=== PATIENT | female | born 1940 | race Caucasian/White ===

== ENCOUNTER 2017-02-22 16:40 | Inpatient (IN) | payer MEDICARE, OTHER, SELFPAY | END 2017-02-24 14:25 | disposition home health service (06) | DRG 190 | PROVIDERS: Admitting Provider Family Medicine; Emergency Provider Emergency Medicine; Family Provider Internal Medicine Adolescent Medicine; Visit Provider Internal Medicine Adolescent Medicine | DX: J18.9 Pneumonia, unspecified organism (principal); J44.0 Chronic obstructive pulmonary disease with (acute) lower respiratory infection; J44.1 Chronic obstructive pulmonary disease with (acute) exacerbation; I10 Essential (primary) hypertension; I50.9 Heart failure, unspecified; Z91.81 History of falling; R26.81 Unsteadiness on feet; M15.9 Polyosteoarthritis, unspecified | CPT/HCPCS: 36415; 71010; 80053; 82550; 82553; 83605; 83880; 84484; 85025; 87040; 87075; 93005; 93041; 94640; 94760; 96365; 96375; 97162; 97165; 97535; 99285; J0456 ==

== ENCOUNTER → 2017-07-16 09:16 | Outpatient (CLI) | payer MEDICARE, OTHER, SELFPAY ==
--- NOTE | 2017-07-16 09:23 | CA_ITS ---
PROCEDURE: 2-D M-mode and color Doppler study INDICATIONS FOR THE TEST: Chest pain COPD Heart Murmur Tobacco Smoking Palpitations Fatigue Syncope Edema+ Hypertension Diabetes Mellitus Rheumatic Fever SOB+GONZALEZ Obesity Hyperlipidemia Family History HD Additional History PATIENT INFORMATION HEIGHT: 64 WEIGHT:160 GENDER: Female B/P: 2-D/M-MODE INTERPRETATION: 2-D MEASUREMENTS OBSERVED VALUES IN CMS Right Ventricular Dimension (RVDd) 2.1 Interventricular Septum (Thickness)(IVsd) 1.8 Left Ventricular Internal Dimensions(LVIDd) 3.3 Left Ventricular Posterior Wall (Thickness)(LVPWd) 1.2 Aortic Root 2.9 Aortic Cusp Separation 1.9 Left Atrial Dimensions (LAD) 3.5 2D 1. Left atrium is mildly enlarged, left ventricle is normal size, mild concentric left ventricular hypertrophy, visually estimated ejection fraction 55% with no obvious regional wall motion abnormality. 2. The right atrium and right ventricle are mildly enlarged with normal contractility. 3. The aortic valve is minimally thickened and fibrosed. 4. The mitral and tricuspid valvular grossly normal. 5. The pulmonic valve is poorly visualized. 6. No significant pericardial effusion noted. DOPPLER INTERROGATION: Doppler interrogation of the aortic, mitral and tricuspid valvular presence of mild mitral and tricuspid regurgitation, tricuspid and jet velocity is insufficient for calculation of the right ventricular systolic pressure, diastolic parameters are inconclusive. CONCLUSION: 1. Technically difficult study because of the patient's factor and poor acoustic windows 2. Mildly enlarged left atrium, normal left ventricular size, mild concentric left ventricular hypertrophy, visually estimated ejection fraction 55% with no obvious regional wall motion abnormality, diastolic parameters are inconclusive. 3. Mildly enlarged right atrium and right ventricle, contractility of the right ventricle is normal. 4. Mild mitral and tricuspid regurgitation 5. No significant pericardial effusion noted.
[2017-07-16 10:28] LABS: Basophils # 0.1 K/mm3 (0-0.2); Eosinophils # 0.4 K/mm3 (0.0-0.4); Eosinophils % 6.3 % (0.1-12.0); Hematocrit 37.1 % (37.0-47.0); Hemoglobin 11.9 g/dL (12.2-16.2); Lymphocytes # 1.8 K/mm3 (0.7-4.5); Lymphocytes % 25.6 K/mm3 (10-50); Mean Corpuscular HGB Conc 32.2 g/dL (31.8-35.4); Mean Corpuscular Hemoglobin 29.6 pg (27.0-31.2); Mean Corpuscular Volume 92.1 fl (81-99); Mean Platelet Volume 7.8 fl (7.4-10.4); Monocytes # 0.4 K/mm3 (0.1-1.0); Monocytes % 5.8 % (1.7-9.3); Neutrophils # 4.3 K/mm3 (1.8-7.8); Neutrophils % 61.3 % (37.0-80.0); Platelet Count 244 K/mm3 (142-424); Red Blood Count 4.03 M/mm3 (4.20-5.40); Red Cell Distribution Width 13.1 % (11.5-17.5)
[2017-07-16 11:47] LABS: Alanine Aminotransferase 18 U/L (12-78); Albumin Level 3.8 gm/dL (3.4-5.0); Albumin/Globulin Ratio 0.9 (1.1-1.8); Alkaline Phosphatase 120 U/L (46-116); Anion Gap 11.8 mEq/L (5-15); Aspartate Amino Transferase 17 U/L (15-37); Bilirubin,Total 0.5 mg/dL (0.2-1.0); Blood Urea Nitrogen 29 mg/dL (7-18); Calcium 9.5 mg/dL (8.5-10.1); Carbon Dioxide 32 mmol/L (21.0-32.0); Chloride 102 mmol/L (98-107); Chol/HDL Ratio 3.1 (1-3.5); Cholesterol 244 mg/dL (140-200); Creatinine,Serum 1.49 mg/dL (0.55-1.02); Estimated Glomerular Filt Rate 34 ml/min (>60); GFR (African American) 41 ML/MIN (>60); Globulin 4.1 gm/dl (1.3-3.2); Glucose 98 mg/dL (74-106); HDL Cholesterol 79 mg/dL (29-89); LDL Cholesterol 144 mg/dL (0-130); Potassium 3.8 mmoL/L (3.5-5.1); Sodium 142 mmol/L (136-145); Thyroid Stimulating Hormone 0.61 uIU/ml (0.358-3.740); Total Protein,Serum 7.9 gm/dL (6.4-8.2); Triglycerides 105 mg/dL (30-200); VLDL Cholesterol 21 mg/dL (0-40)
== END ==
PROVIDERS: Family Provider Internal Medicine Adolescent Medicine; PCP Internal Medicine Adolescent Medicine; Visit Provider Nurse Practitioner Family
DX: R60.1 Generalized edema (principal); I10 Essential (primary) hypertension; E03.9 Hypothyroidism, unspecified; E78.5 Hyperlipidemia, unspecified; J41.1 Mucopurulent chronic bronchitis
CPT/HCPCS: 36415; 80053; 80061; 84443; 85025; 93306

== ENCOUNTER 2018-07-07 20:35 | Inpatient (IN) ==
[2018-07-07 21:02] LABS: Basophils # 0.1 K/mm3 (0-0.2); Basophils % 0.6 % (0.1-2.0); Eosinophils # 0.1 K/mm3 (0.0-0.4); Eosinophils % 0.9 % (0.1-12.0); Hematocrit 34.7 % (37.0-47.0); Hemoglobin 11.4 g/dL (12.2-16.2); Lymphocytes # 1.1 K/mm3 (0.7-4.5); Lymphocytes % 12.1 % (10-50); Mean Corpuscular Hemoglobin 30.8 pg (27.0-31.2); Mean Corpuscular Volume 93.6 fl (81-99); Mean Platelet Volume 8.6 fl (7.4-10.4); Monocytes # 0.6 K/mm3 (0.1-1.0); Monocytes % 6.8 % (1.7-9.3); Neutrophils # 6.9 K/mm3 (1.8-7.8); Neutrophils % 79.6 % (37.0-80.0); Platelet Count 176 K/mm3 (142-424); Red Blood Count 3.71 M/mm3 (4.20-5.40); White Blood Count 8.7 K/mm3 (4.8-10.8)
--- NOTE | 2018-07-07 21:03 | Emergency Department Note ---
ED Disposition Clinical Impression: Severe sepsis, Obesity (BMI 30-39.9), Hypothyroidism (acquired), Renal insufficiency UTI (urinary tract infection) Qualifiers: Urinary tract infection type: site unspecified Hematuria presence: without hematuria Qualified Code(s): N39.0 - Urinary tract infection, site not specified Disposition: Admitted as Observation Condition on Discharge: Fair Referrals: Julia Burkett APRN [Primary Care Provider] - - Critical Care Critical Care Time: No Attestation: On 07/07/18, the high probability of a clinically significant, sudden or life threatening deterioration of the following system(s) required my full and direct attention, intervention and personal management. The time I documented below is in addition to time spent performing reported procedures but includes the following listed in this critical care notation. Medical Decision Making - Medical Records Medical records reviewed: Yes: I reviewed the patient's medical records. - [place] Inquiry Pt receiving controlled substance: No Vital Signs: 07/07/18 20:35 07/07/18 22:47 07/08/18 00:47 Temperature 102.8 F H 98.7 F Temperature Source Oral Oral Pulse Rate [Right Brachial] 99 H 97 H 94 H Respiratory Rate 20 18 Blood Pressure [Right Arm] 160/88 H 159/73 H 170/75 H Blood Pressure Mean [Right Arm] 112 101 106 02 Sat by Pulse Oximetry 95 92 L 90 L Oxygen Delivery Method Room Air - Lab Data Lab results reviewed: Yes: I reviewed the patient's lab results. Lab Results 07/07/18 20:50: Urine Color Yellow, Urine Appearance Cloudy, Urine pH 6.0, Ur Specific [place] 1.025, Urine Protein 2+, Urine Glucose (UA) Negative, Urine Ketones Negative, Urine Blood 3+, Urine Nitrate Positive, Urine Bilirubin Negative, Urine Urobilinogen 0.2, Ur Leukocyte Esterase Trace, Urine RBC 20-50, Urine WBC 50-100, Urine Bacteria 4+ 07/07/18 20:50: Sodium 133 L, Potassium 4.8, Chloride 99, Carbon Dioxide 26, Anion Gap 12.8, BUN 21 H, Creatinine 1.37 H, Estimated Creat Clear 52, Estimated GFR 37 L, Est GFR ( Amer) 45 L, Glucose 101, Calcium 9.0, Total Bilirubin 0.5, AST 11 L, ALT 18, Alkaline Phosphatase 101, Total Protein 8.3 H, Albumin 3.6, Globulin 4.7 H, Albumin/Globulin Ratio 0.8 L, Amylase 45, Lipase 121, TSH 0.08 L D, Free T4 1.48 H 07/07/18 20:50: WBC 8.7, RBC 3.71 L, Hgb 11.4 L, Hct 34.7 L, MCV 93.6, MCH 30.8, MCHC 33.0, RDW 13.0, Plt Count 176, MPV 8.6, Neut % (Auto) 79.6, Lymph % (Auto) 12.1, [place] % (Auto) 6.8, Eos % (Auto) 0.9, Baso % (Auto) 0.6, Neut # (Auto) 6.9, Lymph # (Auto) 1.1, [place] # (Auto) 0.6, Eos # (Auto) 0.1, Baso # (Auto) 0.1 07/07/18 20:50: Lactate 0.7 07/07/18 20:50: Influenza Type A Ag Negative, Influenza Type B Ag Negative Result diagrams: 07/07/18 20:50 07/07/18 20:50 Orders (Tests/Meds): ED MEDICATIONS Generic Name Dose Route Start Last Admin Trade Name Freq PRN Reason Stop Dose Admin Sodium Chloride 1,000 mls @ 999 mls/hr 07/07/18 20:45 07/07/18 21:01 Sod Chlor 0.9% 1000ml Bag IV 07/07/18 21:45 999 mls/hr .Q1H1M YVON Administration Sodium Chloride 1,000 mls @ 999 mls/hr 07/07/18 23:15 07/07/18 23:11 Sod Chlor 0.9% 1000ml Bag IV 07/08/18 00:15 999 mls/hr .Q1H1M YVON Administration Sodium Chloride 1,000 mls @ 999 mls/hr 07/07/18 23:15 Sod Chlor 0.9% 1000ml Bag IV 07/08/18 00:15 .Q1H1M YVON Levofloxacin/Dextrose 750 mg in 150 mls @ 100 mls/hr 07/08/18 00:30 07/08/18 00:34 Levofloxacin 750mg/150ml Premix IV 07/22/18 00:29 100 mls/hr Q24H YVON Administration Protocol Piperacillin Sod/Tazobactam 50 mls @ 100 mls/hr 07/08/18 00:30 Sod 3.375 gm/ Sodium Chloride IV 07/22/18 00:29 Q6H YVON Protocol Ioversol 50 ml 07/08/18 01:24 Rad-Optiray 350 100ml Vial IV 07/08/18 01:25 ONCE ONE Protocol Sodium Chloride 10 ml 07/08/18 01:24 Rad-Saline Flush 10ml Syringe IV 07/08/18 01:25 ONCE ONE Discontinued Medications Generic Name Dose Route Start Last Admin Trade Name Freq PRN Reason Stop Dose Admin Acetaminophen 1,000 mg 07/07/18 20:42 07/07/18 21:00 Tylenol 500mg Tablet PO 07/07/18 20:43 1,000 mg ONCE ONE Administration Ondansetron HCl 4 mg 07/07/18 20:42 07/07/18 21:00 Zofran 4mg/2ml Vial IV 07/07/18 20:43 4 mg ONCE ONE Administration ORDERS Category Date Time Status CT abdomen pelvis w con Stat Cat Scan 07/07/18 20:42 Ordered XR chest portable Stat Exams 07/07/18 20:42 Taken Blood Culture Stat Micro 07/07/18 20:59 Received Urine Culture Stat Micro 07/07/18 20:50 Received - Radiology Data #1 Image(s): Chest Image Reviewed: Yes I reviewed the patient's radiology image Preliminary Findings: Abnormal (nonspecific) - CT Data CT Scan: Abdomen, Pelvis Time Received: 00:[address] Reviewed: Yes: I have viewed the radiologist's interpretation Preliminary Findings: Abnormal (nonspecific) - Physician Consults Physician Consulted: marjorie Reason -: Admission Fever HPI - General Chief Complaint: Fever Stated Complaint: FEVER Time Seen by Provider: 07/07/18 21:00 Mode of Arrival: EMS Source of Information: Patient, EMS, Medical Record Limitations: Physical Limitations Description of Symptoms (Recalled from ER Triage Doc. by RN): PT FROM HOME. PRESENTS WITH C/O FEVER, CHILLS, WEAKNESS AND OVERALL NOT FEELING WELL X 2 DAYS. EMS REPORTS THAT HOME WAS FILTHY AND THE FLOORS WERE COVERED IN FECES AND ANIMALS AND FOUL SMELLING. PT STATES SHE IS NON COMPLIANT WITH HER MEDS AND FEELS SHE "DOES BETTER WITHOUT THEM." - History of Present Illness HPI Narrative: fever and chills and not feeling well over the last 2 days - pt is nonambulatory- MD complaint: fever, weakness Onset (ago): day(s) Associated symptoms: denies other symptoms Treatments prior to arrival fever: none - Related Data Home Medications Medication Instructions Recorded Confirmed Esomeprazole Magnesium [Nexium] 20 mg PO DAILY 07/07/18 07/07/18 Furosemide [Furosemide 40MG tAB] 40 mg PO BID 07/07/18 07/07/18 Levothyroxine Sodium 112 mcg PO DAILY 07/07/18 07/07/18 [Levothyroxine 112mcg (0.112mg) Tab] Pantoprazole Sodium [Protonix 40mg 40 mg PO BID 07/07/18 07/07/18 tablet] Potassium Chloride [Klor-con 20 20 mg PO BID 07/07/18 07/07/18 mEq tablet] Propranolol HCl 10 mg PO TID 07/07/18 07/07/18 Allergies Allergy/AdvReac Type Severity Reaction Status Date / Time clarithromycin Allergy Mild Verified 07/07/18 20:41 [CLARITHROMYCIN] gabapentin [From NEURONTIN] Allergy Mild Verified 07/07/18 20:41 [facility] History - Hepatitis A Screen Drug use history?: No High risk sexual behaviors?: No History of sexually transmitted infection?: No Currently employed?: No Childcare worker?: No Do you have indoor plumbing?: Yes Do you have electricity?: Yes Attestation statement:: This patient has been screened for Hepatitis A risk factors. I have reviewed the patient's past medical history: Yes Medical History: Denies:: Cancer, Diabetes Mellitus Type 1, Diabetes Mellitus Type 2, MRSA Amputation: No - Social History Smoking Status: Former smoker Alcohol Intake: never Occupational Status: retired Housing: house - Psychiatric History Expresses thoughts of harming self/others: None Suicide Plan Description: No Plan ROS Obtained: Yes All systems reviewed & no additional complaints - Constitutional Constitutional: Denies fever(s) - Eyes Eyes: Denies change in vision - ENT Ears, Nose, Mouth, and Throat: Denies sore throat - Cardiovascular Cardiovascular: Denies chest pain - Respiratory Respiratory: No cough - Gastrointestinal Gastrointestingal: Denies: diarrhea, vomiting - Genitourinary Female Genitourinary: Denies hematuria - Musculoskeletal Musculoskeletal: Denies joint swelling - Integumentary/Breasts Skin/Breast: Denies rash - Neurologic Neurologic: Denies seizure-like activity Physical Exam - General General appearance: alert, obese - Head Head exam: normocephalic - Eye Eye exam: Present: PERRL, EOMI. Absent: scleral icterus - ENT ENT exam: Present: mucous membranes dry - Neck Neck exam: Present: trachea midline - Respiratory Respiratory exam: Present: other (dec bs bilat ). Absent: respiratory distress - Cardiovascular Cardiovascular exam: Present: regular rate, systolic murmur - Abdominal Exam Abdominal exam: Present: soft - Extremities Exam Extremities exam: Present: pedal edema. Absent: calf tenderness - Neurological Exam Neurological exam: Present: alert, CN II-XII intact - Psychiatric Psychiatric exam: Present: normal affect - Skin Skin exam: Absent: rash
[2018-07-07 21:05] LABS: Microscopic, Urine URINE MICROSCOPIC (MICROSCOPIC)
[2018-07-07 21:06] LABS: Appearance,Urine CLOUDY (Clear); Bilirubin,Urine Negative (Negative); Blood, Urine 3+ (Negative); Color,Urine YELLOW (Yellow); Glucose,Urine (UA) Negative (Negative); Ketones,Urine Negative (Negative); Leukocyte Esterase,Urine TRACE (Negative); Protein,Urine 2+ (Negative); Specific Gravity, Urine 1.025 (1.005-1.030); Urobilinogen,Urine 0.2 EU/dl (0.2)
[2018-07-07 21:09] LABS: Bacteria,Urine 4+ /lpf; RBC,Urine 20-50 #/hpf (0-3); WBC,Urine 50-100 #/hpf (0-3)
[2018-07-07 21:26] LABS: Albumin Level 3.6 gm/dL (3.4-5.0); Albumin/Globulin Ratio 0.8 (1.1-1.8); Anion Gap 12.8 mEq/L (5-15); Bilirubin,Total 0.5 mg/dL (0.2-1.0); Free T4 (Free Thyroxine) 1.48 ng/dl (0.76-1.46); Globulin 4.7 gm/dl (1.3-3.2); Potassium 4.8 mmoL/L (3.5-5.1); Thyroid Stimulating Hormone 0.08 uIU/ml (0.358-3.740); Total Protein,Serum 8.3 gm/dL (6.4-8.2)
[2018-07-08 07:29] LABS: Basophils % 0.2 % (0.1-2.0); Hematocrit 32.5 % (37.0-47.0); Hemoglobin 10.6 g/dL (12.2-16.2); Lymphocytes # 0.7 K/mm3 (0.7-4.5); Lymphocytes % 4.9 % (10-50); Mean Corpuscular HGB Conc 32.6 g/dL (31.8-35.4); Mean Corpuscular Hemoglobin 30.4 pg (27.0-31.2); Mean Corpuscular Volume 93.4 fl (81-99); Mean Platelet Volume 8.1 fl (7.4-10.4); Monocytes # 0.5 K/mm3 (0.1-1.0); Monocytes % 3.8 % (1.7-9.3); Platelet Count 174 K/mm3 (142-424); Red Blood Count 3.49 M/mm3 (4.20-5.40); Red Cell Distribution Width 13.1 % (11.5-17.5); White Blood Count 14.3 K/mm3 (4.8-10.8)
--- NOTE | 2018-07-08 07:36 | History & Physical Report ---
*Admission Date: 07/08/18 *Chief complaint: Fever and mental status change *History of present illness: 77-year-old white female with history of essential tremor, hypertension, GERD, recurrent urinary tract infections, medical fragility and medical noncompliance, who lives at home with her visually impaired/disabled with very minimal family support, who was found by EMS after being called because "she could not get up" in a puddle of her own urine and feces, surrounded by filthy home environments, animals that were free ranging about the house eating spoiled food, and piles of animal waste, who was then brought to the emergency department. She was found to be septic, with fever over 102, abnormal vital signs and admitted to hospital for broad-spectrum IV antibiotics, IV fluids and further supportive care. This morning she feels somewhat better. [facility] History I have reviewed the patient's past medical history: Yes Medical History: Reports:: Arrhythmia, Hypertension Denies:: Cancer, Diabetes Mellitus Type 1, Diabetes Mellitus Type 2, MRSA *Have you ever received a pneumonia vaccine?: No *Have you received a flu vaccine this season?: No Other Medical History: Reports: Arthritis Laterality Cases: Left: Total Hip Replacement Other Surgeries: Yes: Thyroidectomy Amputation: No - *Social History Smoking Status: Former smoker # Packs/Day (cigarettes): 1 Alcohol Intake: never *Occupational Status:: retired Housing: house Household Members: spouse *Travel in the last 8 weeks: None Comment: Patient social history noted as above. Son lives nearby but apparently has not been heavily involved. Patient has a history of missed appointments and medical noncompliance in my office. - Psychiatric History Expresses thoughts of harming self/others: None Suicide Plan Description: No Plan Family Hx:: Unable to obtain, No significant family history Review of Systems - Review of Systems Review of systems:: pertinent systems reviewed and negative unless documented below Although patient responds to questions appropriately she is really unable to give much of her review of systems. She insists "I need my medicine and I need to go home." - *Neurologic Denies seizure-like activity Meds Home Medications Medication Instructions Recorded Confirmed Type Esomeprazole Magnesium [Nexium] 20 mg PO DAILY 07/07/18 07/07/18 History Furosemide [Furosemide 40MG tAB] 40 mg PO BID 07/07/18 07/07/18 History Levothyroxine Sodium 112 mcg PO DAILY 07/07/18 07/07/18 History [Levothyroxine 112mcg (0.112mg) Tab] Pantoprazole Sodium [Protonix 40mg 40 mg PO BID 07/07/18 07/07/18 History tablet] Potassium Chloride [Klor-con 20 20 mg PO BID 07/07/18 07/07/18 History mEq tablet] Propranolol HCl 10 mg PO TID 07/07/18 07/07/18 History Allergies Allergy/AdvReac Type Severity Reaction Status Date / Time clarithromycin Allergy Mild Verified 07/07/18 20:41 [CLARITHROMYCIN] gabapentin [From NEURONTIN] Allergy Mild Verified 07/07/18 20:41 Exam Vital signs and Labs for Last 24 Hours: Temp Pulse Resp BP Pulse Ox 99.2 F 90 18 130/97 H 94 L 07/08/18 04:00 07/08/18 04:00 07/08/18 04:00 07/08/18 04:00 07/08/18 04:00 Laboratory Results - last 24 hr 07/07/18 20:50: Urine Color Yellow, Urine Appearance Cloudy, Urine pH 6.0, Ur Specific [place] 1.025, Urine Protein 2+, Urine Glucose (UA) Negative, Urine Ketones Negative, Urine Blood 3+, Urine Nitrate Positive, Urine Bilirubin Negative, Urine Urobilinogen 0.2, Ur Leukocyte Esterase Trace, Urine RBC 20-50, Urine WBC 50-100, Urine Bacteria 4+ 07/07/18 20:50: Sodium 133 L, Potassium 4.8, Chloride 99, Carbon Dioxide 26, Anion Gap 12.8, BUN 21 H, Creatinine 1.37 H, Estimated Creat Clear 52, Estimated GFR 37 L, Est GFR ( Amer) 45 L, Glucose 101, Calcium 9.0, Total Bilirubin 0.5, AST 11 L, ALT 18, Alkaline Phosphatase 101, Total Protein 8.3 H, Albumin 3.6, Globulin 4.7 H, Albumin/Globulin Ratio 0.8 L, Amylase 45, Lipase 121, TSH 0.08 L D, Free T4 1.48 H 07/07/18 20:50: WBC 8.7, RBC 3.71 L, Hgb 11.4 L, Hct 34.7 L, MCV 93.6, MCH 30.8, MCHC 33.0, RDW 13.0, Plt Count 176, MPV 8.6, Neut % (Auto) 79.6, Lymph % (Auto) 12.1, [place] % (Auto) 6.8, Eos % (Auto) 0.9, Baso % (Auto) 0.6, Neut # (Auto) 6.9, Lymph # (Auto) 1.1, [place] # (Auto) 0.6, Eos # (Auto) 0.1, Baso # (Auto) 0.1 07/07/18 20:50: Lactate 0.7 07/07/18 20:50: Influenza Type A Ag Negative, Influenza Type B Ag Negative 07/08/18 07:13: WBC 14.3 H D, RBC 3.49 L, Hgb 10.6 L, Hct 32.5 L, MCV 93.4, MCH 30.4, MCHC 32.6, RDW 13.1, Plt Count 174, MPV 8.1, Neut % (Auto) 91.0 H, Lymph % (Auto) 4.9 L, [place] % (Auto) 3.8, Eos % (Auto) 0.0 L, Baso % (Auto) 0.2, Neut # (Auto) 13.0 H, Lymph # (Auto) 0.7, [place] # (Auto) 0.5, Eos # (Auto) 0.0, Baso # (Auto) 0.0 I & O for Last 24 hours: Intake & Output 07/05/18 07/06/18 07/07/18 07/08/18 11:59 11:59 11:59 11:59 Output Total 400 / 400 Balance -400 / -400 Weight 191 lb 2 oz Microbiology Reports for the Last 24 Hours: Microbiology 07/07/18 20:50 Urine,Catheterized Urine Culture - Preliminary Gram Negative Rods Narrative: Patient is alert. Cooperative. However unable to follow detailed commands. Oropharynx dry but clear. No JVD. Anterior lung tong are clear. Heart rate regular. Abdomen soft and nontender. Extremities without edema. She has a fairly impressive essential tremor. Skin turgor is poor, tenting noted. Capillary refill has improved over admission exam notes. Neurologic exam nonfocal except for tremor and global weakness. Assessment and Plan (1) Hypothyroidism (acquired) Current visit: Yes Status: Acute Category: Medical Code(s): E03.9 - Hypothyroidism, unspecified TSH noted. Hold Synthroid for now. (2) Renal insufficiency Current visit: Yes Status: Acute Category: Medical Code(s): N28.9 - Disorder of kidney and ureter, unspecified Continue cautious hydration. Check labs tomorrow (3) Severe sepsis Current visit: Yes Status: Acute Category: Medical Code(s): A41.9 - Sepsis, unspecified organism; R65.20 - Severe sepsis without septic shock Status post antibiotic administration, fluid support. Patient's vital signs are improving. (4) UTI (urinary tract infection) Current visit: Yes Status: Acute Qualifiers: Urinary tract infection type: site unspecified Hematuria presence: without hematuria Qualified Code(s): N39.0 - Urinary tract infection, site not specified Category: Medical Code(s): N39.0 - Urinary tract infection, site not specified Gram-negative rods in urine. Remove catheter today, continue antibiotics. (5) Essential tremor Current visit: Yes Status: Acute Category: Medical Code(s): G25.0 - Essential tremor Restart beta-meg, complicates her care. (6) Ataxia Current visit: Yes Status: Acute Category: Medical Code(s): R27.0 - Ataxia, unspecified Probably from illness/weakness. However essential tremor complicates her status. Needs PT/OT evaluation. Most likely needs to be a candidate for long- term care. (7) Obesity (BMI 30-39.9) Current visit: Yes Status: Acute Category: Medical Code(s): E66.9 - Obesity, unspecified Complicates all aspects of her care
--- NOTE | 2018-07-08 07:38 | Pharmacy Consult Notes ---
[facility] Pharmacy VTE Monitoring - Patient Demographics Admission date: 07/07/18 Report Date: 07/08/18 Time: 07:38 Allergies/Adverse Reactions: Patient Allergies clarithromycin [CLARITHROMYCIN] Allergy (Mild, Verified 07/07/18 20:41) gabapentin [From NEURONTIN] Allergy (Mild, Verified 07/07/18 20:41) Height: 1.65 m Weight: 86.693 kg Patient Problems: Current Active Problems (Updated 07/08/18 @ 01:28 by Miguel Angel Woody MD) UTI (urinary tract infection) (Acute) Severe sepsis (Acute) Obesity (BMI 30-39.9) (Acute) Hypothyroidism (acquired) (Acute) Renal insufficiency (Acute) - VTE Risk Labs: VTE Related Lab Results Hgb 10.6 g/dL (12.2-16.2) L 07/08/18 07:13 Hct 32.5 % (37.0-47.0) L 07/08/18 07:13 Plt Count 174 K/mm3 (142-424) 07/08/18 07:13 BUN 21 mg/dL (7-18) H 07/07/18 20:50 Creatinine 1.37 mg/dL (0.55-1.02) H 07/07/18 20:50 Estimated Creat Clear 52 mL/min (50-200) 07/07/18 20:50 Was VTE Risk Assessment Performed: Yes VTE Score: 6 VTE Risk Level: Moderate Risk - Prophylaxis VTE Prophylaxis Ordered?: Yes Types of VTE Prophylaxis: TEDS Knee High Location of Applied Device: Bilateral Lower Extremeties - VTE Diagnosis Confirmed Treatment or plan recommended: Continue Current Treatment
[2018-07-08 07:40] LABS: Anion Gap 13.2 mEq/L (5-15); Calcium 8.6 mg/dL (8.5-10.1); Potassium 4.2 mmoL/L (3.5-5.1)
[2018-07-08 08:34] LABS: Lymphocytes % 6 % (10-50); Monocytes % 1 % (2-9); Neutrophils % 90 % (42-76); RBC Morphology Normal; Total Cells Counted 100
[2018-07-09 07:50] LABS: Basophils % 0.4 % (0.1-2.0); Eosinophils % 0.1 % (0.1-12.0); Hematocrit 30.3 % (37.0-47.0); Lymphocytes # 1.2 K/mm3 (0.7-4.5); Lymphocytes % 14.4 % (10-50); Mean Corpuscular HGB Conc 32.9 g/dL (31.8-35.4); Mean Corpuscular Hemoglobin 30.5 pg (27.0-31.2); Mean Corpuscular Volume 92.7 fl (81-99); Mean Platelet Volume 7.8 fl (7.4-10.4); Monocytes # 0.4 K/mm3 (0.1-1.0); Monocytes % 4.9 % (1.7-9.3); Neutrophils # 6.7 K/mm3 (1.8-7.8); Neutrophils % 80.2 % (37.0-80.0); Platelet Count 163 K/mm3 (142-424); Red Blood Count 3.27 M/mm3 (4.20-5.40); White Blood Count 8.4 K/mm3 (4.8-10.8)
[2018-07-09 08:22] LABS: Albumin Level 2.8 gm/dL (3.4-5.0); Albumin/Globulin Ratio 0.6 (1.1-1.8); Anion Gap 15.3 mEq/L (5-15); Bilirubin,Total 0.4 mg/dL (0.2-1.0); Calcium 8.6 mg/dL (8.5-10.1); Globulin 4.4 gm/dl (1.3-3.2); Potassium 4.3 mmoL/L (3.5-5.1); Total Protein,Serum 7.2 gm/dL (6.4-8.2)
--- NOTE | 2018-07-09 08:55 | Progress Note ---
Internal Medicine - PN: Subj *Date: 07/09/18 *Time: 14:21 Interval history: Ms. Doe did well overnight and remained afebrile. Physical therapy saw her this morning and did not pick her up as she is unable to ambulate or bear weight on her own, has significant contractions in her calves preventing her from standing. Cultures came back overnight showing patient has an E. coli UTI. She also had a single positive blood culture for group B strep. Suspect this may be contaminant and not real bacteremia as it is a different pathogen from what is in her urine. Tolerating p.o. intake though does not like the dietary choices here at the hospital. Of concern her blood pressure remains elevated above goal. Pleasant on interview this morning Exam Vital signs and Labs for Last 24 Hours: Temp Pulse Resp BP Pulse Ox 99.2 F 78 20 176/72 H 96 07/09/18 08:00 07/09/18 08:00 07/09/18 08:00 07/09/18 08:00 07/09/18 08:00 Laboratory Results - last 24 hr 07/09/18 07:40: WBC 8.4 D, RBC 3.27 L, Hgb 10.0 L, Hct 30.3 L, MCV 92.7, MCH 30.5, MCHC 32.9, RDW 13.0, Plt Count 163, MPV 7.8, Neut % (Auto) 80.2 H, Lymph % (Auto) 14.4, [place] % (Auto) 4.9, Eos % (Auto) 0.1, Baso % (Auto) 0.4, Neut # (Auto) 6.7, Lymph # (Auto) 1.2, [place] # (Auto) 0.4, Eos # (Auto) 0.0, Baso # (Auto) 0.0 07/09/18 07:40: Sodium 133 L, Potassium 4.3, Chloride 100, Carbon Dioxide 22, Anion Gap 15.3 H, BUN 24 H, Creatinine 1.60 H, Estimated Creat Clear 39, Estimated GFR 31 L, Est GFR ( Amer) 38 L, Glucose 115 H, Calcium 8.6, Total Bilirubin 0.4, AST 16 D, ALT 17, Alkaline Phosphatase 74, Total Protein 7.2, Albumin 2.8 L D, Globulin 4.4 H, Albumin/Globulin Ratio 0.6 L I & O for Last 24 hours: Intake & Output 07/06/18 07/07/18 07/08/18 07/09/18 23:59 23:59 23:59 23:59 Intake Total 960 / 960 240 / 240 Output Total 1400 / 1400 450 / 450 Balance -440 / -440 -210 / -210 Weight 99.79 kg 86.693 kg 87.685 kg Microbiology Reports for the Last 24 Hours: Microbiology 07/07/18 20:59 Blood Blood Culture - Preliminary Gram Positive Cocci 07/07/18 20:50 Urine,Catheterized Urine Culture - Final Escherichia coli Narrative: Patient is alert. Cooperative. Oriented to person and place.. Chronically ill- appearing. Upper extremity with muscle wasting of thenar eminence, strength 4/5 bilaterally Oropharynx dry but clear. No JVD. Anterior lung tong are clear. Heart rate regular. Abdomen soft and nontender. Lower extremities with 1+ edema to knees and very tender to palpation and soft tissue. she has a fairly impressive essential tremor. Skin turgor is overly improved. Capillary refill has improved over admission exam notes. Neurologic exam nonfocal except for tremor and global weakness. Quadriceps tight on exam with inability for feet bilaterally to perform dorsiflexion to 90 degrees due to pain and muscle contraction. Functionally quadriplegic. Assessment and Plan (1) Hypothyroidism (acquired) Current visit: Yes Status: Acute Category: Medical Code(s): E03.9 - Hypothyroidism, unspecified (2) Renal insufficiency Current visit: Yes Status: Acute Category: Medical Code(s): N28.9 - Disorder of kidney and ureter, unspecified (3) Severe sepsis Current visit: Yes Status: Resolved Category: Medical Code(s): A41.9 - Sepsis, unspecified organism; R65.20 - Severe sepsis without septic shock (4) UTI (urinary tract infection) Current visit: Yes Status: Acute Qualifiers: Urinary tract infection type: site unspecified Hematuria presence: without hematuria Qualified Code(s): N39.0 - Urinary tract infection, site not specified Category: Medical Code(s): N39.0 - Urinary tract infection, site not specified (5) Essential tremor Current visit: Yes Status: Acute Category: Medical Code(s): G25.0 - Essential tremor (6) Ataxia Current visit: Yes Status: Acute Category: Medical Code(s): R27.0 - Ataxia, unspecified (7) Obesity (BMI 30-39.9) Current visit: Yes Status: Chronic Category: Medical Code(s): E66.9 - Obesity, unspecified Complicates all aspects of care (8) Functional quadriplegia Current visit: Yes Status: Chronic Category: Medical Code(s): R53.2 - Functional quadriplegia Due to debility, being bedbound at home, does not ambulate, requires full assist to move to bathroom. Spends her entire day in a chair. Is cared for by family. Recall the last time she ambulated. Reportedly feeds herself however has severe tremor making it difficult and weakness in her hands. (9) Hypertension Current visit: Yes Status: Acute Qualifiers: Hypertension type: essential hypertension Qualified Code(s): I10 - Essential (primary) hypertension Category: Medical Code(s): I10 - Essential (primary) hypertension Significantly above goal, increase irbesartan to 300 mg daily. Continue propranolol for tremor which will also impact her blood pressure slightly. Continue HCTZ. (10) Hyponatremia Current visit: Yes Status: Acute Category: Medical Code(s): E87.1 - Hypo- osmolality and hyponatremia (11) Anemia Current visit: Yes Status: Chronic Qualifiers: Other causes of anemia: chronic disease, other Category: Medical Code(s): D64.9 - Anemia, unspecified - Assessment and plan all Dx Assessment and Plan for all problems:: Ms. Doe remains in need of inpatient management. Sepsis has resolved. Continuing antibiotics for her urinary tract infection. Repeat blood cultures today to rule out bacteremia in the setting of suspected false positive due to GBS. Additionally addressing her blood pressure with increase in her irbesartan. APS to see patient and assess for appropriateness to discharge home. If continues to improve, will likely discharge tomorrow in the care of her family.
--- NOTE | 2018-07-10 07:46 | Discharge Summary ---
General - General Admission date:: 07/08/18 Discharge date: 07/10/18 HPI HPI: 77-year-old white female with history of essential tremor, hypertension, GERD, recurrent urinary tract infections, medical fragility and medical noncompliance, who lives at home with her visually impaired/disabled with very minimal family support, who was found by EMS after being called because "she could not get up" in a puddle of her own urine and feces, surrounded by filthy home environments, animals that were free ranging about the house eating spoiled food, and piles of animal waste, who was then brought to the emergency department. She was found to be septic, with fever over 102, abnormal vital signs and admitted to hospital for broad-spectrum IV antibiotics, IV fluids and further supportive care. This morning she feels somewhat better. Hospital Course Hospital Course: Patient was admitted as noted above, placed on broad-spectrum antibiotics and sepsis protocol was performed which resulted in improving hemodynamic status and improving mental status. Patient improved nicely. Vital signs improved and normalized. E. coli was grown from the urine culture, pansensitive. Blood culture showed one bottle positive for Streptococcus agalactiae which was determined to be a contaminant. Adult Protective Services visited the home because of the EMS report of deleterious home environment and they determined that the house was clean, patient had family support and they had no concerns. This morning patient is back to her baseline in regards to functioning, eating and mental status. She will be discharged home on levofloxacin p.o. We will refer to home health for PT/OT/home safety evaluation. Patient is unable to leave her home because of arthritic changes, significant pain and immobility issues. Objective Vital signs: Temp Pulse Resp BP Pulse Ox 98.6 F 75 18 162/98 H 93 L 07/10/18 04:00 07/10/18 04:00 07/10/18 04:00 07/10/18 04:00 07/10/18 04:00 Narrative: Patient is alert. Oriented x2. At baseline. Oropharynx is clear, no scleral icterus. Good air movement. Heart rate regular. Abdomen soft. Trace ankle edema at baseline. Globally weak Results Labs on day of discharge: Labs from last 24 hours 07/09/18 07/09/18 07:40 07:40 WBC 8.4 D RBC 3.27 L Hgb 10.0 L Hct 30.3 L MCV 92.7 MCH 30.5 MCHC 32.9 RDW 13.0 Plt Count 163 MPV 7.8 Neut % (Auto) 80.2 H Lymph % (Auto) 14.4 [place] % (Auto) 4.9 Eos % (Auto) 0.1 Baso % (Auto) 0.4 Neut # (Auto) 6.7 Lymph # (Auto) 1.2 [place] # (Auto) 0.4 Eos # (Auto) 0.0 Baso # (Auto) 0.0 Sodium 133 L Potassium 4.3 Chloride 100 Carbon Dioxide 22 Anion Gap 15.3 H BUN 24 H Creatinine 1.60 H Estimated Creat Clear 39 Estimated GFR 31 L Est GFR ( Amer) 38 L Glucose 115 H Calcium 8.6 Total Bilirubin 0.4 AST 16 D ALT 17 Alkaline Phosphatase 74 Total Protein 7.2 Albumin 2.8 L D Globulin 4.4 H Albumin/Globulin Ratio 0.6 L Preliminary micro results at discharge 07/07/18 20:59 Blood Culture - Preliminary Blood Strep agalactiae - (group b) 07/07/18 20:50 Blood Culture - Preliminary Blood NO GROWTH AFTER 48 HOURS DS: Diagnosis - Discharge Diagnosis (1) Hypothyroidism (acquired) Status: Chronic (2) Renal insufficiency Status: Chronic (3) Severe sepsis Status: Resolved (4) UTI (urinary tract infection) Status: Acute (5) Essential tremor Status: Acute (6) Ataxia Status: Acute (7) Obesity (BMI 30-39.9) Status: Chronic (8) Functional quadriplegia Status: Chronic (9) Hypertension Status: Acute (10) Hyponatremia Status: Resolved (11) Anemia Status: Chronic Discharge Plan - Patient Discharge Instructions ACTIVITY: Continue current activity DIET: continue same diet Patient Instructions: Antithrombin III, Urinary Tract Infection, Anemia, High Blood Pressure, DI for Hyponatremia - Follow up Plan Follow up with: Florencia Olmos APRN [Nurse Practitioner] - 07/17/18 Unknown provider or service follow up:: 07/10/18 07:46 Home health evaluation for PT/OT/home safety Disposition: Home Health Service Home Medications: Home Medications Medication Instructions Recorded Confirmed Type Furosemide [Furosemide 40MG tAB] 40 mg PO BID 07/07/18 07/07/18 History Levothyroxine Sodium 112 mcg PO DAILY 07/07/18 07/07/18 History [Levothyroxine 112mcg (0.112mg) Tab] Pantoprazole Sodium [Protonix 40mg 40 mg PO BID 07/07/18 07/07/18 History tablet] Potassium Chloride [Klor-con 20 20 mg PO BID 07/07/18 07/07/18 History mEq tablet] Propranolol HCl 10 mg PO TID 07/07/18 07/07/18 History Albuterol Sulfate [Albuterol 3 ml IH BIDP PRN 07/08/18 07/08/18 History 0.083% 2.5mg/3mL neb] Albuterol Sulfate [Proair Hfa 2 puffs IH QID 07/08/18 07/08/18 History 90mcg/puff Inh] Aspirin [Aspir 81] 81 mg PO DAILY 07/08/18 07/08/18 History Atorvastatin Calcium [Atorvastatin 20 mg PO DAILY 07/08/18 07/08/18 History 20mg Tab] Cholecalciferol (Vitamin D3) 50,000 unit PO WEEKLY 07/08/18 07/08/18 History [Vitamin D3 50,000 unit Cap] Duloxetine HCl [Cymbalta] 30 mg PO BID 07/08/18 07/08/18 History Fluticasone Propionate [Flonase 2 spr NS DAILY 07/08/18 07/08/18 History 50mcg nasal spray 16gm] Fluticasone/Vilanterol [Breo 1 inh IH DAILY 07/08/18 07/08/18 History Ellipta 200-25 Mcg INH] Loratadine [Claritin] 10 mg PO DAILY 07/08/18 07/08/18 History Losartan/Hydrochlorothiazide 1 each PO DAILY 07/08/18 07/08/18 History [Losartan-Hctz 100-25 mg Tab] Primidone 100 mg PO DAILY 07/08/18 07/08/18 History Umeclidinium [place] [Incruse 1 puff IH DAILY 07/08/18 07/08/18 History Ellipta] raNITIdine HCl [Ranitidine HCl] 300 mg PO HS 07/08/18 07/08/18 History levoFLOXacin [Levaquin 500mg 500 mg PO DAILY #7 tab 07/10/18 Rx tab] Prescriptions/Medication Reconciliation: New levoFLOXacin [Levaquin 500mg tab] 500 mg PO DAILY #7 tab Continued Pantoprazole Sodium [Protonix 40mg tablet] 40 mg PO BID Furosemide [Furosemide 40MG tAB] 40 mg PO BID Potassium Chloride [Klor-con 20 mEq tablet] 20 mg PO BID Levothyroxine Sodium [Levothyroxine 112mcg (0.112mg) Tab] 112 mcg PO DAILY Albuterol Sulfate [Albuterol 0.083% 2.5mg/3mL neb] 3 ml IH BIDP PRN PRN Reason: SHORTNESS OF AIR Albuterol Sulfate [Proair Hfa 90mcg/puff Inh] 2 puffs IH QID Aspirin [Aspir 81] 81 mg PO DAILY Atorvastatin Calcium [Atorvastatin 20mg Tab] 20 mg PO DAILY Cholecalciferol (Vitamin D3) [Vitamin D3 50,000 unit Cap] 50,000 unit PO WEEKLY Duloxetine HCl [Cymbalta] 30 mg PO BID Fluticasone Propionate [Flonase 50mcg nasal spray 16gm] 2 spr NS DAILY Fluticasone/Vilanterol [Breo Ellipta 200-25 Mcg INH] 1 inh IH DAILY Loratadine [Claritin] 10 mg PO DAILY Primidone 100 mg PO DAILY raNITIdine HCl [Ranitidine HCl] 300 mg PO HS Umeclidinium [place] [Incruse Ellipta] 1 puff IH DAILY Propranolol HCl 10 mg PO TID Losartan/Hydrochlorothiazide [Losartan-Hctz 100-25 mg Tab] 1 each PO DAILY
== END 2018-07-10 11:01 | disposition home health service (06) | DRG 689 ==
LOC: 2ND 20:35 → ER 20:35 → 2ND 07-08 01:49
PROVIDERS: ADMIT Internal Medicine Adolescent Medicine; ATTEND Internal Medicine Adolescent Medicine
CPT/HCPCS: 36415; 71010; 71045; 74177; 80048; 80053; 81001; 82150; 83605; 83690; 83735; 84439; 84443; 85007; 85025; 87040; 87077; 87086; 87088; 87186; 87275; 87276; 94640; 96365; 96366; 96367; 97110; 97162; 97166; 99285; J1956; J2405; J2543; Q9967

== ENCOUNTER → 2018-07-18 15:48 | Outpatient (CLI) | payer MEDICARE, OTHER, SELFPAY ==
[2018-07-18 16:18] VITALS: BMI 24.8
[2018-07-18 18:06] LABS: Microscopic,Cath URINE MICROSCOPIC (MICROSCOPIC)
[2018-07-18 18:10] LABS: Appearance,Urine/Cath CLEAR (Clear); Bilirubin,Cath Negative (Negative); Blood, Urine/Cath Negative (Negative); Color,Urine/Cath YELLOW (Yellow); Glucose,Urine/Cath (UA) Negative (Negative); Ketones,Urine/Cath Negative (Negative); Leukocyte Esterase,Cath Negative (Negative); Nitrate,Cath Negative (Negative); Protein,Urine/Cath Negative (Negative); Urobilinogen,Cath 0.2 EU/dl (0.2)
[2018-07-18 18:42] LABS: Alanine Aminotransferase 17 U/L (12-78); Albumin Level 3.4 gm/dL (3.4-5.0); Albumin/Globulin Ratio 0.8 (1.1-1.8); Alkaline Phosphatase 93 U/L (46-116); Anion Gap 13.2 mEq/L (5-15); Aspartate Amino Transferase 15 U/L (15-37); Bilirubin,Total 0.5 mg/dL (0.2-1.0); Blood Urea Nitrogen 15 mg/dL (7-18); Calcium 8.4 mg/dL (8.5-10.1); Carbon Dioxide 26 mmol/L (21.0-32.0); Chloride 102 mmol/L (98-107); Creatinine Clearance Estimated 50 mL/min (50-200); Creatinine,Serum 0.99 mg/dL (0.55-1.02); Estimated Glomerular Filt Rate 54 ml/min (>60); GFR (African American) 65 ML/MIN (>60); Globulin 4.3 gm/dl (1.3-3.2); Glucose 86 mg/dL (74-106); Potassium 4.2 mmoL/L (3.5-5.1); Sodium 137 mmol/L (136-145); Thyroid Stimulating Hormone 1.27 uIU/ml (0.358-3.740); Total Protein,Serum 7.7 gm/dL (6.4-8.2)
[2018-07-18 18:48] LABS: Bacteria,Urine/Cath TRACE /lpf
== END ==
PROVIDERS: Visit Provider Nurse Practitioner Family
DX: I10 Essential (primary) hypertension (principal); N39.0 Urinary tract infection, site not specified; B95.2 Enterococcus as the cause of diseases classified elsewhere; E03.9 Hypothyroidism, unspecified; R30.0 Dysuria
CPT/HCPCS: 36415; 80053; 81001; 84443; 87086

== ENCOUNTER 2018-12-10 21:05 | Inpatient (IN) ==
[2018-12-10 21:24] LABS: Basophils # 0.1 K/mm3 (0-0.2); Basophils % 0.6 % (0.1-2.0); Eosinophils # 0.3 K/mm3 (0.0-0.4); Eosinophils % 2.7 % (0.1-12.0); Hematocrit 35.7 % (37.0-47.0); Hemoglobin 10.7 g/dL (12.2-16.2); Lymphocytes % 31.5 % (10-50); Mean Corpuscular HGB Conc 29.9 g/dL (31.8-35.4); Mean Corpuscular Volume 101.7 fl (81-99); Monocytes # 0.6 K/mm3 (0.1-1.0); Monocytes % 6.6 % (1.7-9.3); Neutrophils # 5.6 K/mm3 (1.8-7.8); Neutrophils % 58.6 % (37.0-80.0); Platelet Count 285 K/mm3 (142-424); Red Blood Count 3.52 M/mm3 (4.20-5.40); Red Cell Distribution Width 16.5 % (11.5-17.5); White Blood Count 9.6 K/mm3 (4.8-10.8)
[2018-12-10 21:28] LABS: Microscopic, Urine URINE MICROSCOPIC (MICROSCOPIC)
[2018-12-10 21:37] LABS: Appearance,Urine CLEAR (Clear); Bilirubin,Urine Negative (Negative); Blood, Urine Negative (Negative); Color,Urine YELLOW (Yellow); Glucose,Urine (UA) Negative (Negative); Ketones,Urine Negative (Negative); Leukocyte Esterase,Urine Negative (Negative); Protein,Urine 1+ (Negative); Urobilinogen,Urine 0.2 EU/dl (0.2)
[2018-12-10 22:02] LABS: Bacteria,Urine 1+ /lpf; Mucus,Urine 1+ /lpf
[2018-12-10 22:14] LABS: Alanine Aminotransferase 14 U/L (12-78); Albumin Level 3.4 gm/dL (3.4-5.0); Albumin/Globulin Ratio 0.8 (1.1-1.8); Alkaline Phosphatase 95 U/L (46-116); Amylase 33 U/L (25-115); Anion Gap 14.6 mEq/L (5-15); Aspartate Amino Transferase 17 U/L (15-37); Bilirubin,Total 0.4 mg/dL (0.2-1.0); Blood Urea Nitrogen 12 mg/dL (7-18); C-Reactive Protein 0.2 mg/dL (0.0-0.9); Calcium 8.8 mg/dL (8.5-10.1); Carbon Dioxide 25 mmol/L (21.0-32.0); Chloride 96 mmol/L (98-107); Globulin 4.4 gm/dl (1.3-3.2); Glucose 112 mg/dL (74-106); Sodium 132 mmol/L (136-145); Total Protein,Serum 7.8 gm/dL (6.4-8.2)
--- NOTE | 2018-12-10 22:35 | Emergency Department Note ---
ED Disposition Clinical Impression: Obesity (BMI 30-39.9), Functional quadriplegia, Fecal impaction, RBBB, Bacteremia UTI (urinary tract infection) Qualifiers: Urinary tract infection type: site unspecified Hematuria presence: without hematuria Qualified Code(s): N39.0 - Urinary tract infection, site not specified Hypothyroidism Qualifiers: Hypothyroidism type: acquired Qualified Code(s): E03.9 - Hypothyroidism, unspecified Disposition: Admitted as Observation Condition on Discharge: Good Referrals: Provider,Referral, [Primary Care Provider] - - Critical Care Critical Care Time: No Attestation: On 12/10/18, the high probability of a clinically significant, sudden or life threatening deterioration of the following system(s) required my full and direct attention, intervention and personal management. The time I documented below is in addition to time spent performing reported procedures but includes the [place] wing listed in this critical care notation. Medical Decision Making - Medical Records Medical records reviewed: Yes: I reviewed the patient's medical records. - [place] Inquiry Pt receiving controlled substance: No Vital Signs: 12/10/18 21:06 Temperature 97 F L Temperature Source Oral Pulse Rate [Right Brachial] 118 H Respiratory Rate 17 Blood Pressure [Right Arm] 189/97 H Blood Pressure Mean [Right Arm] 127 02 Sat by Pulse Oximetry 98 Oxygen Delivery Method Room Air - Lab Data Lab results reviewed: Yes: I reviewed the patient's lab results. Lab Results 12/10/18 21:00: WBC 9.6, RBC 3.52 L, Hgb 10.7 L, Hct 35.7 L, MCV 101.7 H, MCH 30.4, MCHC 29.9 L, RDW 16.5, Plt Count 285, MPV 8.0, Neut % (Auto) 58.6, Lymph % (Auto) 31.5, [place] % (Auto) 6.6, Eos % (Auto) 2.7, Baso % (Auto) 0.6, Neut # (Auto) 5.6, Lymph # (Auto) 3.0, [place] # (Auto) 0.6, Eos # (Auto) 0.3, Baso # (Auto) 0.1 12/10/18 21:00: Sodium 132 L, Potassium 3.6, Chloride 96 L, Carbon Dioxide 25, Anion Gap 14.6, BUN 12, Creatinine 1.06 H, Estimated Creat Clear 64, Estimated GFR 50 L, Est GFR ( Amer) 60, Glucose 112 H, Calcium 8.8, Total Bilirubin 0.4, AST 17, ALT 14, Alkaline Phosphatase 95, Troponin I < 0.02, C-Reactive Protein 0.2, Total Protein 7.8, Albumin 3.4, Globulin 4.4 H, Albumin/Globulin Ratio 0.8 L, Amylase 33, Lipase 97 12/10/18 21:00: ESR 13 12/10/18 21:20: Urine Color Yellow, Urine Appearance Clear, Urine pH 6.0, Ur Specific [place] 1.020, Urine Protein 1+, Urine Glucose (UA) Negative, Urine Ketones Negative, Urine Blood Negative, Urine Nitrate Positive, Urine Bilirubin Negative, Urine Urobilinogen 0.2, Ur Leukocyte Esterase Negative, Urine WBC 5- 10, Ur Squamous Epith Cells 3-5, Urine Bacteria 1+, Hyaline Casts 3-5, Urine Mucus 1+ 12/10/18 21:20: Lactate 0.9 Result diagrams: 12/10/18 21:00 12/10/18 21:00 Orders (Tests/Meds): ED MEDICATIONS Generic Name Dose Route Start Last Admin Trade Name Freq PRN Reason Stop Dose Admin Sodium Chloride 1,000 mls @ 999 mls/hr 12/10/18 21:15 12/10/18 21:43 Sod Chlor 0.9% 1000ml Bag IV 12/10/18 22:15 999 mls/hr .[id number] YVON Administration Discontinued Medications Generic Name Dose Route Start Last Admin Trade Name Freq PRN Reason Stop Dose Admin Ioversol 75 ml 12/10/18 23:07 12/10/18 23:08 Rad-Optiray 350 100ml Vial IV 12/10/18 23:08 75 ml ONCE ONE Administration Protocol Sodium Chloride 10 ml 12/10/18 23:07 12/10/18 23:08 Rad-Saline Flush 10ml Syringe IV 12/10/18 23:08 10 ml ONCE ONE Administration ORDERS Category Date Time Status CT abdomen pelvis w con Stat Cat Scan 12/10/18 21:[address] head/brain wo con Stat Cat Scan 12/10/18 21:12 Taken Blood Culture Stat Micro 12/10/18 21:20 Received - CT Data CT Scan: Head, Abdomen, Pelvis Time Received: 23:[address] Reviewed: Yes: I have viewed the radiologist's interpretation Preliminary Findings: Abnormal (see report ) - ECG Data Tracing #1 Normal Sinus Rhythm: Yes Ischemic changes: non-specific ST-T wave changes Conduction abnormalities present: RBBB - Physician Consults Physician Consulted: [email or web address] Reason -: Admission Nausea/Vomiting/Diarrhea HPI - General Chief complaint: Nausea/Vomiting/Diarrhea Stated complaint: vomiting Time Seen by Provider: 12/10/18 21:15 Mode of Arrival: EMS Source of Information: Patient, Relative, EMS, Medical Record Limitations: No Limitations Description of Symptoms (Recalled from ER Triage Doc. by RN): pt presents to ed with c/o vomiting/weakness/nausea x 3 days. ems reports that patient and are both "living out of recliners." emt-p reports that patient was found sitting in a urine saturated couch with stool and urine covering patient. - History of Present Illness HPI Narrative: pt with episode of vomiting and abd pain with hx of recent ed visit and had uti and bacteremia - pt is nonambulatory - MD complaint: nausea, vomiting, abdominal pain Onset (ago): day(s) Associated Abdominal Pain: Yes Location of pain: diffuse Severity: moderate Associated symptoms: denies other symptoms - Related Data Home Medications Medication Instructions Recorded Confirmed Levothyroxine Sodium 112 mcg PO DAILY 07/07/18 12/10/18 [Levothyroxine 112mcg (0.112mg) Tab] Pantoprazole Sodium [Protonix 40mg 40 mg PO BID 07/07/18 12/10/18 tablet] Potassium Chloride [Klor-con 20 20 mg PO BID 07/07/18 12/10/18 mEq tablet] Albuterol Sulfate [Albuterol 3 ml IH BIDP PRN 07/08/18 12/10/18 0.083% 2.5mg/3mL neb] Albuterol Sulfate [Proair Hfa 2 puffs IH QID 07/08/18 12/10/18 90mcg/puff Inh] Aspirin [Aspir 81] 81 mg PO DAILY 07/08/18 12/10/18 Atorvastatin Calcium [Atorvastatin 20 mg PO DAILY 07/08/18 12/10/18 20mg Tab] Duloxetine HCl [Cymbalta] 30 mg PO BID 07/08/18 12/10/18 Fluticasone Propionate [Flonase 2 spr NS DAILY 07/08/18 12/10/18 50mcg nasal spray 16gm] Fluticasone/Vilanterol [Breo 1 inh IH DAILY 07/08/18 12/10/18 Ellipta 200-25 Mcg INH] Loratadine [Claritin] 10 mg PO DAILY 07/08/18 12/10/18 Losartan/Hydrochlorothiazide 1 each PO DAILY 07/08/18 12/10/18 [Losartan-Hctz 100-25 mg Tab] Primidone 100 mg PO DAILY 07/08/18 12/10/18 Umeclidinium [place] [Incruse 1 puff IH DAILY 07/08/18 12/10/18 Ellipta] levoFLOXacin [Levaquin 500mg 500 mg PO DAILY 12/10/18 12/10/18 tab] Allergies Allergy/AdvReac Type Severity Reaction Status Date / Time clarithromycin Allergy Mild Verified 12/10/18 21:12 [CLARITHROMYCIN] gabapentin [From NEURONTIN] Allergy Mild Verified 12/10/18 21:12 [facility] History - Hepatitis A Screen Drug use history?: No High risk sexual behaviors?: No History of sexually transmitted infection?: No Currently employed?: No Childcare worker?: No Do you have indoor plumbing?: Yes Do you have electricity?: Yes Attestation statement:: This patient has been screened for Hepatitis A risk factors. I have reviewed the patient's past medical history: Yes Medical History: Reports:: Arrhythmia, Hypertension Denies:: Cancer, Diabetes Mellitus Type 1, Diabetes Mellitus Type 2, MRSA Other Medical History: Reports: Arthritis Laterality Cases: Left: Total Hip Replacement Other Surgeries: Yes: Thyroidectomy Amputation: No - Social History Smoking Status: Former smoker # Packs/Day (cigarettes): 1 Alcohol Intake: never Occupational Status: retired Housing: house Household Members: spouse Comment: Patient social history noted as above. Son lives nearby but apparently has not been heavily involved. Patient has a history of missed appointments and medical noncompliance in my office. Family Hx:: Unable to obtain, No significant family history ROS Obtained: Yes All systems reviewed & no additional complaints - Constitutional Constitutional: Reports as per HPI, Denies fever(s), Reports weakness - Eyes Eyes: Denies change in vision - ENT Ears, Nose, Mouth, and Throat: Denies sore throat - Cardiovascular Cardiovascular: Denies chest pain - Respiratory Respiratory: No cough - Gastrointestinal Gastrointestingal: Reports: abdominal pain, nausea, vomiting - Genitourinary Female Genitourinary: Denies flank pain - Musculoskeletal Musculoskeletal: Denies joint pain - Integumentary/Breasts Skin/Breast: Denies rash - Neurologic Neurologic: Denies focal weakness, Denies seizure-like activity Physical Exam - General General appearance: alert, obese - Head Head exam: normocephalic - Eye Eye exam: Present: PERRL, EOMI. Absent: scleral icterus - ENT ENT exam: Present: mucous membranes dry - Neck Neck exam: Present: trachea midline - Respiratory Respiratory exam: Present: other (dec bs bilat ). Absent: respiratory distress - Cardiovascular Cardiovascular exam: Present: regular rate, systolic murmur, +S4 - Abdominal Exam Abdominal exam: Present: soft, tenderness Abdominal tenderness: Present: epigastrium, moderate - Extremities Exam Extremities exam: Present: pedal edema. Absent: calf tenderness - Neurological Exam Neurological exam: Present: alert, CN II-XII intact - Skin Skin exam: Absent: rash
[2018-12-11 06:28] LABS: Basophils % 0.2 % (0.1-2.0); Eosinophils % 0.3 % (0.1-12.0); Hematocrit 32.5 % (37.0-47.0); Lymphocytes # 1.3 K/mm3 (0.7-4.5); Mean Corpuscular HGB Conc 29.7 g/dL (31.8-35.4); Mean Corpuscular Volume 102.9 fl (81-99); Mean Platelet Volume 7.8 fl (7.4-10.4); Monocytes # 0.5 K/mm3 (0.1-1.0); Monocytes % 6.3 % (1.7-9.3); Neutrophils # 5.9 K/mm3 (1.8-7.8); Neutrophils % 76.2 % (37.0-80.0); Platelet Count 232 K/mm3 (142-424); Red Blood Count 3.15 M/mm3 (4.20-5.40); Red Cell Distribution Width 16.5 % (11.5-17.5); White Blood Count 7.7 K/mm3 (4.8-10.8)
[2018-12-11 06:38] LABS: Hemoglobin 9.6 g/dL (12.2-16.2)
[2018-12-11 06:56] LABS: Anion Gap 12.7 mEq/L (5-15); Calcium 8.3 mg/dL (8.5-10.1)
--- NOTE | 2018-12-11 07:23 | Pharmacy Consult Notes ---
[facility] Pharmacy VTE Monitoring - Patient Demographics Admission date: 12/11/18 Report Date: 12/11/18 Time: 07:23 Allergies/Adverse Reactions: Patient Allergies clarithromycin [CLARITHROMYCIN] Allergy (Mild, Verified 12/10/18 21:12) gabapentin [From NEURONTIN] Allergy (Mild, Verified 12/10/18 21:12) Height: 1.68 m Weight: 83.178 kg Patient Problems: Current Active Problems UTI (urinary tract infection) (Acute) Obesity (BMI 30-39.9) (Chronic) Functional quadriplegia (Chronic) Fecal impaction (Acute) Hypothyroidism (Acute) RBBB (Acute) Bacteremia (Acute) - VTE Risk Labs: VTE Related Lab Results Hgb 9.6 g/dL (12.2-16.2) L D 12/11/18 06:06 Hct 32.5 % (37.0-47.0) L 12/11/18 06:06 Plt Count 232 K/mm3 (142-424) 12/11/18 06:06 BUN 11 mg/dL (7-18) 12/11/18 06:06 Creatinine 0.92 mg/dL (0.55-1.02) 12/11/18 06:06 Estimated Creat Clear 59 mL/min (50-200) 12/11/18 06:06 Was VTE Risk Assessment Performed: Yes VTE Score: 6 VTE Risk Level: Moderate Risk Clinical Trial Participant: No - Prophylaxis VTE Prophylaxis Ordered?: Yes Types of VTE Prophylaxis: TEDS Knee High
--- NOTE | 2018-12-11 08:38 | History & Physical Report ---
*Admission Date: 12/11/18 *Chief complaint: Immobility/incontinence/fevers *History of present illness: 78-year-old white female, intermittent patient to my practice, who rarely comes to the office because of transportation issues and also general disagreement with management plan-wishes to have opiates at every visit-who has been living at home with her disabled with very intermittent and sparse care from children who over the past week has had increasing problems with worsening illness, UTI symptoms and fevers. Was seen in the emergency department last week, diagnosed with a UTI and placed on antibiotics and discharged, however urine and blood cultures have returned with Staphylococcus epidermidis-identical resistance patterns in both culture sets, and patient return to the ER by EMS yesterday evening after EMS was called because of the patient's inability to get up and take care of herself. They found the patient and her in squalid conditions, sitting in puddles of their own stool and urine with significant issues with poor hygiene and ongoing lack of cleanliness in the home. The patient was brought to the ER where cultures were reviewed from her previous ER note and she was admitted to hospital with vancomycin therapy for her bacteremia and UTI that failed outpatient therapy. [facility] History I have reviewed the patient's past medical history: Yes Medical History: Reports:: Arrhythmia, Hyperlipidemia, Hypertension Denies:: Cancer, Diabetes Mellitus Type 1, Diabetes Mellitus Type 2, MRSA *Have you ever received a pneumonia vaccine?: No *Have you received a flu vaccine this season?: No Other Medical History: Reports: Arthritis, Thyroid Disease Laterality Cases: Left: Total Hip Replacement Other Surgeries: Yes: Thyroidectomy Amputation: No - *Social History Educational Level: Attended High School Smoking Status: Former smoker # Packs/Day (cigarettes): 1 Alcohol Intake: never *Occupational Status:: retired Housing: house Household Members: spouse, other *Travel in the last 8 weeks: None - Psychiatric History Expresses thoughts of harming self/others: None Family Hx:: No significant family history Review of Systems - Review of Systems Review of systems:: pertinent systems reviewed and negative unless documented below Patient denies cardiac or pulmonary symptoms Reports the UTI symptoms as above, reports she feels much better with Ace cath in place. Reports some diarrhea at home but this is not been a chronic problem. Reports that this morning she is unable to swallow her food, but this apparently was not a problem yesterday on admission. Reports that she is weak, has lots of pains and "may need to go to a rest home." - *Neurologic Reports weakness, Denies localized weakness, Denies seizure-like activity Meds Home Medications Medication Instructions Recorded Confirmed Type Levothyroxine Sodium 150 mcg PO DAILY 07/07/18 12/11/18 History [Levothyroxine 112mcg (0.112mg) Tab] Pantoprazole Sodium [Protonix 40mg 40 mg PO DAILY 07/07/18 12/11/18 History tablet] Potassium Chloride [Klor-con 20 20 mg PO DAILY 07/07/18 12/11/18 History mEq tablet] Albuterol Sulfate [Albuterol 3 ml IH BIDP PRN 07/08/18 12/10/18 History 0.083% 2.5mg/3mL neb] Albuterol Sulfate [Proair Hfa 2 puffs IH QID 07/08/18 12/10/18 History 90mcg/puff Inh] Aspirin [Aspir 81] 81 mg PO DAILY 07/08/18 12/11/18 History Atorvastatin Calcium [Atorvastatin 20 mg PO DAILY 07/08/18 12/11/18 History 20mg Tab] Duloxetine HCl [Cymbalta] 30 mg PO BID 07/08/18 12/11/18 History Fluticasone Propionate [Flonase 2 spr NS DAILY 07/08/18 12/10/18 History 50mcg nasal spray 16gm] Fluticasone/Vilanterol [Breo 1 inh IH DAILY 07/08/18 12/10/18 History Ellipta 200-25 Mcg INH] Loratadine [Claritin] 10 mg PO DAILY 07/08/18 12/11/18 History Primidone 100 mg PO DAILY 07/08/18 12/11/18 History Umeclidinium [place] [Incruse 1 puff IH DAILY 07/08/18 12/10/18 History Ellipta] levoFLOXacin [Levaquin 500mg 500 mg PO DAILY 12/10/18 12/11/18 History tab] Levothyroxine Sodium 150 mcg PO DAILY 12/11/18 12/11/18 History [Levothyroxine 150mcg (0.15mg) Tab] Losartan Potassium 100 mg PO DAILY 12/11/18 12/11/18 History Allergies Allergy/AdvReac Type Severity Reaction Status Date / Time clarithromycin Allergy Mild Verified 12/10/18 21:12 [CLARITHROMYCIN] gabapentin [From NEURONTIN] Allergy Mild Verified 12/10/18 21:12 Exam Vital signs and Labs for Last 24 Hours: Temp Pulse Resp BP Pulse Ox 98.7 F 87 17 155/68 H 94 L 12/11/18 08:00 12/11/18 08:00 12/11/18 08:00 12/11/18 08:00 12/11/18 08:00 Laboratory Results - last 24 hr 12/10/18 21:00: WBC 9.6, RBC 3.52 L, Hgb 10.7 L, Hct 35.7 L, MCV 101.7 H, MCH 30.4, MCHC 29.9 L, RDW 16.5, Plt Count 285, MPV 8.0, Neut % (Auto) 58.6, Lymph % (Auto) 31.5, [place] % (Auto) 6.6, Eos % (Auto) 2.7, Baso % (Auto) 0.6, Neut # (Auto) 5.6, Lymph # (Auto) 3.0, [place] # (Auto) 0.6, Eos # (Auto) 0.3, Baso # (Auto) 0.1 12/10/18 21:00: Sodium 132 L, Potassium 3.6, Chloride 96 L, Carbon Dioxide 25, Anion Gap 14.6, BUN 12, Creatinine 1.06 H, Estimated Creat Clear 64, Estimated GFR 50 L, Est GFR ( Amer) 60, Glucose 112 H, Calcium 8.8, Total Bilirubin 0.4, AST 17, ALT 14, Alkaline Phosphatase 95, Troponin I < 0.02, C-Reactive Protein 0.2, Total Protein 7.8, Albumin 3.4, Globulin 4.4 H, Albumin/Globulin Ratio 0.8 L, Amylase 33, Lipase 97 12/10/18 21:00: ESR 13 12/10/18 21:20: Urine Color Yellow, Urine Appearance Clear, Urine pH 6.0, Ur Specific [place] 1.020, Urine Protein 1+, Urine Glucose (UA) Negative, Urine Ketones Negative, Urine Blood Negative, Urine Nitrate Positive, Urine Bilirubin Negative, Urine Urobilinogen 0.2, Ur Leukocyte Esterase Negative, Urine WBC 5- 10, Ur Squamous Epith Cells 3-5, Urine Bacteria 1+, Hyaline Casts 3-5, Urine Mucus 1+ 12/10/18 21:20: Lactate 0.9 12/11/18 03:20: Troponin I 0.04 12/11/18 06:06: WBC 7.7, RBC 3.15 L, Hgb 9.6 L D, Hct 32.5 L, MCV 102.9 H, MCH 30.6, MCHC 29.7 L, RDW 16.5, Plt Count 232, MPV 7.8, Neut % (Auto) 76.2, Lymph % (Auto) 17.0, [place] % (Auto) 6.3, Eos % (Auto) 0.3, Baso % (Auto) 0.2, Neut # (Auto) 5.9, Lymph # (Auto) 1.3, [place] # (Auto) 0.5, Eos # (Auto) 0.0, Baso # (Auto) 0.0 12/11/18 06:06: Sodium 134 L, Potassium 3.7, Chloride 100, Carbon Dioxide 25, Anion Gap 12.7, BUN 11, Creatinine 0.92, Estimated Creat Clear 59, Estimated GFR 59, Est GFR ( Amer) 71, Glucose 109 H, Calcium 8.3 L, Magnesium 1.6, Troponin I 0.04 I & O for Last 24 hours: Intake & Output 12/08/18 12/09/18 12/10/18 12/11/18 11:59 11:59 11:59 11:59 Intake Total 0 / 0 Output Total 550 / 550 Balance -550 / -550 Weight 183 lb 6 oz Narrative: Patient is awake. Has somewhat sluggish speech patterns when responding to questions but is oriented x2. Oropharynx dry but clear. No JVD. Has a resting essential tremor of upper extremities which is an old finding. Skin breakdown is not noted. The nurses have done a very nice job of cleaning her up from her admission presentation. Anterior lung tong are clear, heart rate regular with an occasional ectopic beat. Soft holosystolic murmur. Abdomen is soft. Ace catheter draining clear yellow urine. Able to move arms and legs symmetrically. Cranial nerves are symmetric. Assessment and Plan (1) Bacteremia Current visit: Yes Status: Acute Category: Medical Code(s): R78.81 - Bacteremia Patient has staph bacteremia. Vancomycin and clindamycin will be ordered for coverage. Urine seems to be the source. (2) Fecal impaction Current visit: Yes Status: Acute Category: Medical Code(s): K56.41 - Fecal impaction CT scan of abdomen showed fecal impaction. This seems to have been resolved clinically. (3) Hypothyroidism Current visit: Yes Status: Acute Qualifiers: Hypothyroidism type: acquired Qualified Code(s): E03.9 - Hypothyroidism, unspecified Category: Medical Code(s): E03.9 - Hypothyroidism, unspecified (4) UTI (urinary tract infection) Current visit: Yes Status: Acute Qualifiers: Urinary tract infection type: site unspecified Hematuria presence: without hematuria Qualified Code(s): N39.0 - Urinary tract infection, site not specified Category: Medical Code(s): N39.0 - Urinary tract infection, site not specified Failed outpatient therapy. Vancomycin intravenously along with clindamycin. 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 PT/OT evaluation. I think patient needs to be in an extended care facility. APS has been contacted regarding the deplorable conditions at her home. (7) Swallowing dysfunction Current visit: Yes Status: Acute Category: Medical Code(s): R13.10 - Dysphagia, unspecified Unsure of this etiology. Speech therapy evaluation.
--- NOTE | 2018-12-11 08:41 | Pharmacy Consult Notes ---
- Pharmacy Consult Date: 12/11/18 Time: 08:40 Referring provider: DR. VILLEGAS Reason for Consult:: VANCOMYCIN DOSING Allergies and ADEs:: Allergies Allergy/AdvReac Type Severity Reaction Status Date / Time clarithromycin Allergy Mild Verified 12/10/18 21:12 [CLARITHROMYCIN] gabapentin [From NEURONTIN] Allergy Mild Verified 12/10/18 21:12 Home Medications:: Home Medications Medication Instructions Recorded Confirmed Type Levothyroxine Sodium 150 mcg PO DAILY 07/07/18 12/11/18 History [Levothyroxine 112mcg (0.112mg) Tab] Pantoprazole Sodium [Protonix 40mg 40 mg PO DAILY 07/07/18 12/11/18 History tablet] Potassium Chloride [Klor-con 20 20 mg PO DAILY 07/07/18 12/11/18 History mEq tablet] Albuterol Sulfate [Albuterol 3 ml IH BIDP PRN 07/08/18 12/10/18 History 0.083% 2.5mg/3mL neb] Albuterol Sulfate [Proair Hfa 2 puffs IH QID 07/08/18 12/10/18 History 90mcg/puff Inh] Aspirin [Aspir 81] 81 mg PO DAILY 07/08/18 12/11/18 History Atorvastatin Calcium [Atorvastatin 20 mg PO DAILY 07/08/18 12/11/18 History 20mg Tab] Duloxetine HCl [Cymbalta] 30 mg PO BID 07/08/18 12/11/18 History Fluticasone Propionate [Flonase 2 spr NS DAILY 07/08/18 12/10/18 History 50mcg nasal spray 16gm] Fluticasone/Vilanterol [Breo 1 inh IH DAILY 07/08/18 12/10/18 History Ellipta 200-25 Mcg INH] Loratadine [Claritin] 10 mg PO DAILY 07/08/18 12/11/18 History Primidone 100 mg PO DAILY 07/08/18 12/11/18 History Umeclidinium [place] [Incruse 1 puff IH DAILY 07/08/18 12/10/18 History Ellipta] levoFLOXacin [Levaquin 500mg 500 mg PO DAILY 12/10/18 12/11/18 History tab] Levothyroxine Sodium 150 mcg PO DAILY 12/11/18 12/11/18 History [Levothyroxine 150mcg (0.15mg) Tab] Losartan Potassium 100 mg PO DAILY 12/11/18 12/11/18 History Height: 1.68 m Weight: 83.178 kg Laboratory Results:: Laboratory Results - last 24 hr 12/10/18 21:00: WBC 9.6, RBC 3.52 L, Hgb 10.7 L, Hct 35.7 L, MCV 101.7 H, MCH 30.4, MCHC 29.9 L, RDW 16.5, Plt Count 285, MPV 8.0, Neut % (Auto) 58.6, Lymph % (Auto) 31.5, [place] % (Auto) 6.6, Eos % (Auto) 2.7, Baso % (Auto) 0.6, Neut # (Auto) 5.6, Lymph # (Auto) 3.0, [place] # (Auto) 0.6, Eos # (Auto) 0.3, Baso # (Auto) 0.1 12/10/18 21:00: Sodium 132 L, Potassium 3.6, Chloride 96 L, Carbon Dioxide 25, Anion Gap 14.6, BUN 12, Creatinine 1.06 H, Estimated Creat Clear 64, Estimated GFR 50 L, Est GFR ( Amer) 60, Glucose 112 H, Calcium 8.8, Total Bilirubin 0.4, AST 17, ALT 14, Alkaline Phosphatase 95, Troponin I < 0.02, C-Reactive Protein 0.2, Total Protein 7.8, Albumin 3.4, Globulin 4.4 H, Albumin/Globulin Ratio 0.8 L, Amylase 33, Lipase 97 12/10/18 21:00: ESR 13 12/10/18 21:20: Urine Color Yellow, Urine Appearance Clear, Urine pH 6.0, Ur S pecific [place] 1.020, Urine Protein 1+, Urine Glucose (UA) Negative, Urine Ketones Negative, Urine Blood Negative, Urine Nitrate Positive, Urine Bilirubin Negative, Urine Urobilinogen 0.2, Ur Leukocyte Esterase Negative, Urine WBC 5- 10, Ur Squamous Epith Cells 3-5, Urine Bacteria 1+, Hyaline Casts 3-5, Urine Mucus 1+ 12/10/18 21:20: Lactate 0.9 12/11/18 03:20: Troponin I 0.04 12/11/18 06:06: WBC 7.7, RBC 3.15 L, Hgb 9.6 L D, Hct 32.5 L, MCV 102.9 H, MCH 30.6, MCHC 29.7 L, RDW 16.5, Plt Count 232, MPV 7.8, Neut % (Auto) 76.2, Lymph % (Auto) 17.0, [place] % (Auto) 6.3, Eos % (Auto) 0.3, Baso % (Auto) 0.2, Neut # (Auto) 5.9, Lymph # (Auto) 1.3, [place] # (Auto) 0.5, Eos # (Auto) 0.0, Baso # (Auto) 0.0 12/11/18 06:06: Sodium 134 L, Potassium 3.7, Chloride 100, Carbon Dioxide 25, Anion Gap 12.7, BUN 11, Creatinine 0.92, Estimated Creat Clear 59, Estimated GFR 59, Est GFR ( Amer) 71, Glucose 109 H, Calcium 8.3 L, Magnesium 1.6, Troponin I 0.04 Medical History: Reports:: Arrhythmia, Hyperlipidemia, Hypertension Denies:: Cancer, Diabetes Mellitus Type 1, Diabetes Mellitus Type 2, MRSA Assessment and Plan - Assessment and plan all Dx Assessment and Plan for all problems:: RECOMMEND CONTINUING WITH VANCOMYCIN 1500 MG Q24H.
--- NOTE | 2018-12-11 13:43 | Electrocardiograph Report ---
APPROVED REPORT Exam: Resting ECG HR:91 bpm ECG Measurements Heart Rate 91 AXES ND 180 P 81 QRSd 130 QRS 76 QT 366 T8 QTc 450 <Conclusion> Normal sinus rhythm Right bundle branch block T wave abnormality, consider inferior ischemia Abnormal ECG Electronically signed by : Khai Frederick, 12/11/2018 13:42:58
[2018-12-12 06:14] LABS: Basophils # 0.1 K/mm3 (0-0.2); Basophils % 0.6 % (0.1-2.0); Eosinophils # 0.2 K/mm3 (0.0-0.4); Eosinophils % 2.9 % (0.1-12.0); Hematocrit 31.1 % (37.0-47.0); Hemoglobin 9.2 g/dL (12.2-16.2); Lymphocytes # 1.8 K/mm3 (0.7-4.5); Lymphocytes % 22.6 % (10-50); Mean Corpuscular HGB Conc 29.5 g/dL (31.8-35.4); Mean Corpuscular Volume 103.9 fl (81-99); Mean Platelet Volume 7.8 fl (7.4-10.4); Monocytes # 0.6 K/mm3 (0.1-1.0); Monocytes % 7.7 % (1.7-9.3); Neutrophils # 5.4 K/mm3 (1.8-7.8); Neutrophils % 66.3 % (37.0-80.0); Platelet Count 210 K/mm3 (142-424); Red Cell Distribution Width 16.6 % (11.5-17.5); White Blood Count 8.1 K/mm3 (4.8-10.8)
[2018-12-12 06:33] LABS: Albumin Level 2.8 gm/dL (3.4-5.0); Albumin/Globulin Ratio 0.8 (1.1-1.8); Anion Gap 12.3 mEq/L (5-15); Bilirubin,Total 0.4 mg/dL (0.2-1.0); Calcium 8.1 mg/dL (8.5-10.1); Globulin 3.6 gm/dl (1.3-3.2); Total Protein,Serum 6.4 gm/dL (6.4-8.2)
--- NOTE | 2018-12-12 08:28 | Progress Note ---
Internal Medicine - PN: Subj *Date: 12/12/18 *Time: 08:40 Interval history: Ms. Doe did well overnight. Has no significant complaints this morning. States she is feeling better. Remains afebrile. Blood pressure elevated but not concerning for acute need for treatment at this time. Denies shortness of breath, chest pain, nausea, vomiting, diarrhea. In bed on exam, appears quite debilitated. Review of labs this morning shows patient had positive blood cultures on 12/10. Discussed need for repeat cultures to assess for clearance of bacteremia. Requesting to go home to be with her ailing even if only for a day or 2 and she will come back. Explained that that is not the way her current condition works and having positive blood cultures is a very serious concern. Exam Vital signs and Labs for Last 24 Hours: Temp Pulse Resp BP Pulse Ox 98.9 F 75 18 155/65 H 95 12/12/18 08:00 12/12/18 08:00 12/12/18 08:00 12/12/18 08:00 12/12/18 08:00 Laboratory Results - last 24 hr 12/12/18 05:54: WBC 8.1, RBC 3.00 L, Hgb 9.2 L, Hct 31.1 L, MCV 103.9 H, MCH 30.6, MCHC 29.5 L, RDW 16.6, Plt Count 210, MPV 7.8, Neut % (Auto) 66.3, Lymph % (Auto) 22.6, [place] % (Auto) 7.7, Eos % (Auto) 2.9, Baso % (Auto) 0.6, Neut # (Auto) 5.4, Lymph # (Auto) 1.8, [place] # (Auto) 0.6, Eos # (Auto) 0.2, Baso # (Auto) 0.1 12/12/18 05:54: Sodium 137, Potassium 3.3 L, Chloride 103, Carbon Dioxide 25, Anion Gap 12.3, BUN 11, Creatinine 0.96, Estimated Creat Clear 60, Estimated GFR 56 L, Est GFR ( Amer) 68, Glucose 91, Calcium 8.1 L, Total Bilirubin 0.4, AST 14 L, ALT 11 L, Alkaline Phosphatase 76, Total Protein 6.4, Albumin 2.8 L D, Globulin 3.6 H, Albumin/Globulin Ratio 0.8 L I & O for Last 24 hours: Intake & Output 12/09/18 12/10/18 12/11/18 12/12/18 23:59 23:59 23:59 23:59 Intake Total 1735 / 1735 1063 / 1063 Output Total 1025 / 1025 400 / 400 Balance 710 / 710 663 / 663 Weight 95.254 kg 83.178 kg 84.878 kg Microbiology Reports for the Last 24 Hours: Microbiology 12/10/18 21:20 Blood Blood Culture - Preliminary Narrative: Patient is awake. Debilitated in appearance, elderly. Sluggish speech patterns when responding to questions but is oriented x2. Oropharynx dry but clear. No JVD. Has a resting essential tremor of bilateral upper extremities which is chronic Skin intact, Anterior lung tong are clear, heart rate regular with an occasional ectopic beat. Soft holosystolic murmur. Abdomen is soft. Ace catheter draining clear yellow urine. Able to move arms and legs symmetrically with strength 4/5 globally. Cranial nerves are symmetric. Assessment and Plan (1) Bacteremia Current visit: Yes Status: Acute Category: Medical Code(s): R78.81 - Bacteremia (2) Fecal impaction Current visit: Yes Status: Acute Category: Medical Code(s): K56.41 - Fecal impaction (3) Hypothyroidism Current visit: Yes Status: Acute Qualifiers: Hypothyroidism type: acquired Qualified Code(s): E03.9 - Hypothyroidism, unspecified Category: Medical Code(s): E03.9 - Hypothyroidism, unspecified (4) UTI (urinary tract infection) Current visit: Yes Status: Acute Qualifiers: Urinary tract infection type: site unspecified Hematuria presence: without hematuria Qualified Code(s): N39.0 - Urinary tract infection, site not specified Category: Medical Code(s): N39.0 - Urinary tract infection, site not specified (5) Obesity (BMI 30-39.9) Current visit: Yes Status: Chronic Category: Medical Code(s): E66.9 - Obesity, unspecified (6) Ataxia Current visit: No Status: Acute Category: Medical Code(s): R27.0 - Ataxia, unspecified (7) Swallowing dysfunction Current visit: Yes Status: Acute Category: Medical Code(s): R13.10 - Dysphagia, unspecified - Assessment and plan all Dx Assessment and Plan for all problems:: 78-year-old female with gram-positive bacteremia and UTI. Continue antibiotics as ordered. Repeat blood cultures today due to positive culture from 12/10. Further management pending clearance of bacteremia. Anticipate placement of PICC when cultures clear and likely needing 14 days of IV antibiotics. Continues to require inpatient management. Condition guarded, prognosis poor.
[2018-12-13 06:56] LABS: Basophils % 0.5 % (0.1-2.0); Eosinophils # 0.2 K/mm3 (0.0-0.4); Eosinophils % 2.9 % (0.1-12.0); Hematocrit 31.4 % (37.0-47.0); Hemoglobin 9.5 g/dL (12.2-16.2); Lymphocytes # 1.8 K/mm3 (0.7-4.5); Lymphocytes % 23.1 % (10-50); Mean Corpuscular HGB Conc 30.3 g/dL (31.8-35.4); Mean Corpuscular Volume 101.5 fl (81-99); Mean Platelet Volume 8.2 fl (7.4-10.4); Monocytes # 0.5 K/mm3 (0.1-1.0); Monocytes % 6.5 % (1.7-9.3); Neutrophils # 5.2 K/mm3 (1.8-7.8); Neutrophils % 67.1 % (37.0-80.0); Platelet Count 214 K/mm3 (142-424); Red Cell Distribution Width 15.6 % (11.5-17.5); White Blood Count 7.8 K/mm3 (4.8-10.8)
[2018-12-13 07:12] LABS: Calcium 8.1 mg/dL (8.5-10.1); Phosphorous 3.5 mg/dL (2.4-4.9)
--- NOTE | 2018-12-13 11:06 | Pharmacy Consult Notes ---
- Pharmacy Consult Date: 12/13/18 Time: 11:04 Referring provider: DR. VILLEGAS Reason for Consult:: VANCOMYCIN TROUGH LEVEL Allergies and ADEs:: Allergies Allergy/AdvReac Type Severity Reaction Status Date / Time clarithromycin Allergy Mild Verified 12/10/18 21:12 [CLARITHROMYCIN] gabapentin [From NEURONTIN] Allergy Mild Verified 12/10/18 21:12 Home Medications:: Home Medications Medication Instructions Recorded Confirmed Type Pantoprazole Sodium [Protonix 40mg 40 mg PO HS 07/07/18 12/11/18 History tablet] Potassium Chloride [Klor-con 20 20 mg PO DAILY 07/07/18 12/11/18 History mEq tablet] Albuterol Sulfate [Albuterol 3 ml IH BIDP PRN 07/08/18 12/10/18 History 0.083% 2.5mg/3mL neb] Albuterol Sulfate [Proair Hfa 2 puffs IH QID 07/08/18 12/10/18 History 90mcg/puff Inh] Aspirin [Aspir 81] 81 mg PO DAILY 07/08/18 12/11/18 History Atorvastatin Calcium [Atorvastatin 20 mg PO HS 07/08/18 12/11/18 History 20mg Tab] Duloxetine HCl [Cymbalta] 30 mg PO BID 07/08/18 12/11/18 History Fluticasone Propionate [Flonase 2 spr NS DAILY 07/08/18 12/10/18 History 50mcg nasal spray 16gm] Fluticasone/Vilanterol [Breo 1 inh IH DAILY 07/08/18 12/10/18 History Ellipta 200-25 Mcg INH] Loratadine [Claritin] 10 mg PO DAILY 07/08/18 12/11/18 History Primidone 100 mg PO DAILY 07/08/18 12/11/18 History Umeclidinium [place] [Incruse 1 puff IH DAILY 07/08/18 12/10/18 History Ellipta] levoFLOXacin [Levaquin 500mg 500 mg PO DAILY 12/10/18 12/11/18 History tab] Levothyroxine Sodium 150 mcg PO DAILY 12/11/18 12/11/18 History [Levothyroxine 150mcg (0.15mg) Tab] Losartan Potassium 100 mg PO DAILY 12/11/18 12/11/18 History Height: 1.68 m Weight: 86.211 kg Laboratory Results:: Laboratory Results - last 24 hr 12/12/18 20:30: Vancomycin T[place] 19.3 12/13/18 06:22: WBC 7.8, RBC 3.10 L, Hgb 9.5 L, Hct 31.4 L, MCV 101.5 H, MCH 30.8, MCHC 30.3 L, RDW 15.6, Plt Count 214, MPV 8.2, Neut % (Auto) 67.1, Lymph % (Auto) 23.1, [place] % (Auto) 6.5, Eos % (Auto) 2.9, Baso % (Auto) 0.5, Neut # (Auto) 5.2, Lymph # (Auto) 1.8, [place] # (Auto) 0.5, Eos # (Auto) 0.2, Baso # (Auto) 0.0 12/13/18 06:22: Sodium 138, Potassium 3.0 L, Chloride 104, Carbon Dioxide 23, Anion Gap 14.0, BUN 9, Creatinine 0.91, Estimated Creat Clear 61, Estimated GFR 59, Est GFR ( Amer) 72, Glucose 93, Calcium 8.1 L, Phosphorus 3.5, Magnesium 1.5 Medical History: Reports:: Arrhythmia, Hyperlipidemia, Hypertension Denies:: Cancer, Diabetes Mellitus Type 1, Diabetes Mellitus Type 2, MRSA Assessment and Plan (1) Bacteremia Current visit: Yes Status: Acute Category: Medical Code(s): R78.81 - Bacteremia (2) Fecal impaction Current visit: Yes Status: Acute Category: Medical Code(s): K56.41 - Fecal impaction (3) Hypothyroidism Current visit: Yes Status: Acute Qualifiers: Hypothyroidism type: acquired Qualified Code(s): E03.9 - Hypothyroidism, unspecified Category: Medical Code(s): E03.9 - Hypothyroidism, unspecified (4) UTI (urinary tract infection) Current visit: Yes Status: Acute Qualifiers: Urinary tract infection type: site unspecified Hematuria presence: without hematuria Qualified Code(s): N39.0 - Urinary tract infection, site not specified Category: Medical Code(s): N39.0 - Urinary tract infection, site not specified (5) Obesity (BMI 30-39.9) Current visit: Yes Status: Chronic Category: Medical Code(s): E66.9 - Obesity, unspecified (6) Ataxia Current visit: No Status: Acute Category: Medical Code(s): R27.0 - Ataxia, unspecified (7) Swallowing dysfunction Current visit: Yes Status: Acute Category: Medical Code(s): R13.10 - Dysphagia, unspecified - Assessment and plan all Dx Assessment and Plan for all problems:: BASED ON VANCOMYCIN TROUGH LEVEL AND PATIENT FACTORS, RECOMMEND DECREASING DOSE TO VANCOMYCIN 1250 MG IV Q24H. PHARMACY WILL CONTINUE TO MONITOR DAILY AND ADJUST APPROPRIATE.
--- NOTE | 2018-12-13 14:31 | Progress Note ---
Internal Medicine - PN: Subj *Date: 12/13/18 *Time: 08:30 Interval history: Patient did well overnight. Remains afebrile and hemodynamically stable. Tolerating current medications. Repeat blood cultures pending, remain negative at this time. Tolerating p.o. diet without difficulty. Denies nausea, vomiting, chest pain, shortness of breath. Does complain of bilateral knee pain after doing "her exercises". Wanting to know when she is going home she needs to get home to her , re-stressed the importance of appropriate treatment for her bacteremia given the severity and mortality risks that this presents. Exam Vital signs and Labs for Last 24 Hours: Temp Pulse Resp BP Pulse Ox 97.6 F 85 20 162/72 H 96 12/13/18 08:00 12/13/18 08:00 12/13/18 08:00 12/13/18 08:00 12/13/18 08:00 Laboratory Results - last 24 hr 12/12/18 20:30: Vancomycin Trough 19.3 12/13/18 06:22: WBC 7.8, RBC 3.10 L, Hgb 9.5 L, Hct 31.4 L, MCV 101.5 H, MCH 30.8, MCHC 30.3 L, RDW 15.6, Plt Count 214, MPV 8.2, Neut % (Auto) 67.1, Lymph % (Auto) 23.1, Pershing % (Auto) 6.5, Eos % (Auto) 2.9, Baso % (Auto) 0.5, Neut # (Auto) 5.2, Lymph # (Auto) 1.8, Pershing # (Auto) 0.5, Eos # (Auto) 0.2, Baso # (Auto) 0.0 12/13/18 06:22: Sodium 138, Potassium 3.0 L, Chloride 104, Carbon Dioxide 23, Anion Gap 14.0, BUN 9, Creatinine 0.91, Estimated Creat Clear 61, Estimated GFR 59, Est GFR ( Amer) 72, Glucose 93, Calcium 8.1 L, Phosphorus 3.5, Magnesium 1.5 I & O for Last 24 hours: Intake & Output 12/10/18 12/11/18 12/12/18 12/13/18 23:59 23:59 23:59 23:59 Intake Total 1735 / 1735 2575 / 2575 1442 / 1442 Output Total 1025 / 1025 1750 / 1750 400 / 400 Balance 710 / 710 825 / 825 1042 / 1042 Weight 95.254 kg 83.178 kg 84.878 kg 86.211 kg Microbiology Reports for the Last 24 Hours: Microbiology 12/10/18 21:20 Blood Blood Culture - Preliminary Gram Positive Cocci 12/10/18 21:20 Blood Blood Culture - Preliminary NO GROWTH AFTER 48 HOURS Narrative: Patient is awake. Debilitated in appearance, elderly. Sluggish speech patterns when responding to questions but is oriented x2. Oropharynx dry but clear. No JVD. Has a resting essential tremor of bilateral upper extremities which is chronic Skin intact, Anterior lung tong are clear, heart rate regular with an occasional ectopic beat. Soft holosystolic murmur. Abdomen is soft. Ace catheter draining clear yellow urine. Able to move arms and legs symmetrically with strength 4/5 globally. Cranial nerves are symmetric. Assessment and Plan (1) Bacteremia Current visit: Yes Status: Acute Category: Medical Code(s): R78.81 - Bacteremia (2) Fecal impaction Current visit: Yes Status: Acute Category: Medical Code(s): K56.41 - Fecal impaction (3) Hypothyroidism Current visit: Yes Status: Acute Qualifiers: Hypothyroidism type: acquired Qualified Code(s): E03.9 - Hypothyroidism, unspecified Category: Medical Code(s): E03.9 - Hypothyroidism, unspecified (4) UTI (urinary tract infection) Current visit: Yes Status: Acute Qualifiers: Urinary tract infection type: site unspecified Hematuria presence: without hematuria Qualified Code(s): N39.0 - Urinary tract infection, site not specified Category: Medical Code(s): N39.0 - Urinary tract infection, site not specified (5) Obesity (BMI 30-39.9) Current visit: Yes Status: Chronic Category: Medical Code(s): E66.9 - Obesity, unspecified (6) Ataxia Current visit: No Status: Acute Category: Medical Code(s): R27.0 - Ataxia, unspecified (7) Swallowing dysfunction Current visit: Yes Status: Acute Category: Medical Code(s): R13.10 - Dysphagia, unspecified - Assessment and plan all Dx Assessment and Plan for all problems:: Continue to await clearance of blood cultures. Once blood cultures are negative for 48 hours, will place pick and pursue definitive course of antibiotic therapy. Patient is interested in going back home with home health and family to help take care of her and administer meds however understands that "if she decides" she may go to a nursing facility/rest home as she puts it for a brief period of time. Continues to require inpatient management.
--- NOTE | 2018-12-14 08:46 | Progress Note ---
Internal Medicine - PN: Subj *Date: 12/14/18 *Time: 08:44 Interval history: Patient sleeping. When awakened she is oriented x3. Exam Vital signs and Labs for Last 24 Hours: Temp Pulse Resp BP Pulse Ox 97.9 F 94 H 18 182/72 H 93 L 12/14/18 08:00 12/14/18 08:00 12/14/18 08:00 12/14/18 08:00 12/14/18 08:00 I & O for Last 24 hours: Intake & Output 12/11/18 12/12/18 12/13/18 12/14/18 11:59 11:59 11:59 11:59 Intake Total 0 / 0 2798 / 2798 2954 / 2954 1925 / 1925 Output Total 550 / 550 875 / 875 1750 / 1750 1275 / 1275 Balance -550 / -550 1923 / 1923 1204 / 1204 650 / 650 Weight 183 lb 6.017 oz 187 lb 2 oz 190 lb 1 oz 194 lb 6 oz Microbiology Reports for the Last 24 Hours: Microbiology 12/12/18 08:20 Blood Blood Culture - Preliminary NO GROWTH AFTER 48 HOURS 12/12/18 08:13 Blood Blood Culture - Preliminary NO GROWTH AFTER 48 HOURS 12/10/18 21:20 Blood Blood Culture - Preliminary Gram Positive Cocci Narrative: Anterior lung tong are clear, oropharynx clear. No JVD. Heart rate regular. Abdomen soft. Globally weak in all 4 extremities. Ace catheter draining clear yellow urine. Assessment and Plan (1) Bacteremia Current visit: Yes Status: Acute Category: Medical Code(s): R78.81 - Bacteremia (2) Fecal impaction Current visit: Yes Status: Acute Category: Medical Code(s): K56.41 - Fecal impaction (3) Hypothyroidism Current visit: Yes Status: Acute Qualifiers: Hypothyroidism type: acquired Qualified Code(s): E03.9 - Hypothyroidism, unspecified Category: Medical Code(s): E03.9 - Hypothyroidism, unspecified (4) UTI (urinary tract infection) Current visit: Yes Status: Acute Qualifiers: Urinary tract infection type: site unspecified Hematuria presence: without hematuria Qualified Code(s): N39.0 - Urinary tract infection, site not specified Category: Medical Code(s): N39.0 - Urinary tract infection, site not specified (5) Obesity (BMI 30-39.9) Current visit: Yes Status: Chronic Category: Medical Code(s): E66.9 - Obesity, unspecified (6) Ataxia Current visit: No Status: Acute Category: Medical Code(s): R27.0 - Ataxia, unspecified (7) Swallowing dysfunction Current visit: Yes Status: Acute Category: Medical Code(s): R13.10 - Dysphagia, unspecified (8) Hypokalemia Current visit: Yes Status: Acute Category: Medical Code(s): E87.6 - Hypokalemia (9) Hypocalcemia Current visit: Yes Status: Acute Category: Medical Code(s): E83.51 - Hypocalcemia - Assessment and plan all Dx Assessment and Plan for all problems:: Above-noted problems remain unchanged in regards to plan. Remains on antibiotics while we await definitive culture from the gram-positive cocci specimen and blood. We will plan for PICC line placement for 7 to 10 days of IV antibiotics and patient seems more amenable to long-term care placement and she was yesterday. Please see prior notes regarding social situation issues. Patient was noted to be hypokalemic and hypocalcemic yesterday. This will be replaced today and we will check labs tomorrow.
--- NOTE | 2018-12-14 14:19 | Progress Note ---
Internal Medicine - PN: Subj *Date: 12/14/18 *Time: 14:18 Exam Vital signs and Labs for Last 24 Hours: Temp Pulse Resp BP Pulse Ox 97.9 F 94 H 18 182/72 H 93 L 12/14/18 08:00 12/14/18 08:00 12/14/18 08:00 12/14/18 08:00 12/14/18 08:00 I & O for Last 24 hours: Intake & Output 12/11/18 12/12/18 12/13/18 12/14/18 23:59 23:59 23:59 23:59 Intake Total 1735 / 1735 2575 / 2575 1442 / 1442 1925 / 1925 Output Total 1025 / 1025 1750 / 1750 900 / 1425 775 / 775 Balance 710 / 710 825 / 825 542 / 17 1150 / 1150 Weight 83.178 kg 84.878 kg 86.211 kg 88.167 kg Microbiology Reports for the Last 24 Hours: Microbiology 12/12/18 08:20 Blood Blood Culture - Preliminary NO GROWTH AFTER 48 HOURS 12/12/18 08:13 Blood Blood Culture - Preliminary NO GROWTH AFTER 48 HOURS 12/10/18 21:20 Blood Blood Culture - Preliminary Gram Positive Cocci Assessment and Plan (1) Bacteremia Current visit: Yes Status: Acute Category: Medical Code(s): R78.81 - Bacteremia (2) Fecal impaction Current visit: Yes Status: Acute Category: Medical Code(s): K56.41 - Fecal impaction (3) Hypothyroidism Current visit: Yes Status: Acute Qualifiers: Hypothyroidism type: acquired Qualified Code(s): E03.9 - Hypothyroidism, unspecified Category: Medical Code(s): E03.9 - Hypothyroidism, unspecified (4) UTI (urinary tract infection) Current visit: Yes Status: Acute Qualifiers: Urinary tract infection type: site unspecified Hematuria presence: without hematuria Qualified Code(s): N39.0 - Urinary tract infection, site not specified Category: Medical Code(s): N39.0 - Urinary tract infection, site not specified (5) Obesity (BMI 30-39.9) Current visit: Yes Status: Chronic Category: Medical Code(s): E66.9 - Obesity, unspecified (6) Ataxia Current visit: No Status: Acute Category: Medical Code(s): R27.0 - Ataxia, unspecified (7) Swallowing dysfunction Current visit: Yes Status: Acute Category: Medical Code(s): R13.10 - Dysphagia, unspecified (8) Hypokalemia Current visit: Yes Status: Acute Category: Medical Code(s): E87.6 - Hypokalemia (9) Hypocalcemia Current visit: Yes Status: Acute Category: Medical Code(s): E83.51 - Hypocalcemia The patient's infection will respond to the chosen ABx?: Yes Is the patient receiving the right drug, dose, and route?: Yes Could a more targeted ABx be ordered?: No (GRAM + COCCI, MECA -)
[2018-12-15 06:08] LABS: Basophils % 0.5 % (0.1-2.0); Eosinophils # 0.3 K/mm3 (0.0-0.4); Eosinophils % 3.7 % (0.1-12.0); Hematocrit 31.2 % (37.0-47.0); Hemoglobin 9.4 g/dL (12.2-16.2); Lymphocytes # 1.9 K/mm3 (0.7-4.5); Lymphocytes % 23.7 % (10-50); Mean Corpuscular HGB Conc 30.1 g/dL (31.8-35.4); Mean Corpuscular Volume 103.1 fl (81-99); Mean Platelet Volume 7.7 fl (7.4-10.4); Monocytes # 0.6 K/mm3 (0.1-1.0); Monocytes % 7.7 % (1.7-9.3); Neutrophils # 5.2 K/mm3 (1.8-7.8); Neutrophils % 64.3 % (37.0-80.0); Platelet Count 217 K/mm3 (142-424); Red Blood Count 3.02 M/mm3 (4.20-5.40); Red Cell Distribution Width 16.6 % (11.5-17.5); White Blood Count 8.1 K/mm3 (4.8-10.8)
[2018-12-15 06:37] LABS: Anion Gap 12.5 mEq/L (5-15); Calcium 8.2 mg/dL (8.5-10.1)
--- NOTE | 2018-12-16 08:23 | Progress Note ---
Internal Medicine - PN: Subj *Date: 12/16/18 *Time: 08:21 Interval history: Patient's affect and complaints are unchanged today. She continues to express her desire to go home. Tremor is improved today. She has eaten 100% of her breakfast. Exam Vital signs and Labs for Last 24 Hours: Temp Pulse Resp BP Pulse Ox 98.8 F 86 20 161/81 H 96 12/16/18 08:00 12/16/18 08:00 12/16/18 08:00 12/16/18 08:00 12/16/18 08:00 Laboratory Results - last 24 hr 12/15/18 20:30: Vancomycin Trough 19.4 I & O for Last 24 hours: Intake & Output 12/13/18 12/14/18 12/15/18 12/16/18 11:59 11:59 11:59 11:59 Intake Total 2954 / 2954 1925 / 1925 5790 / 5790 2524 / 2524 Output Total 1750 / 1750 1275 / 1275 1450 / 1450 Balance 1204 / 1204 650 / 650 4340 / 4340 2524 / 2524 Weight 190 lb 1 oz 194 lb 6 oz 204 lb 4 oz 203 lb Microbiology Reports for the Last 24 Hours: Microbiology 12/10/18 21:20 Blood Blood Culture - Final NO GROWTH AFTER 5 DAYS 12/10/18 21:20 Blood Blood Culture - Preliminary Staphylococcus epidermidis Narrative: Patient is awake, alert. Continues to have significant disordered thinking about her home situation and her safety profile at home. Lungs have good air movement. Heart rate regular. Abdomen is soft and nontender, obesity limits her exam. Mild essential tremor is improving, seems to be related to replacement of potassium and calcium and its improvement. No extremity clubbing or edema, good distal perfusion. No rash. Continues to have significant weakness and disuse of her lower and upper extremities. Assessment and Plan (1) Bacteremia Current visit: Yes Status: Acute Category: Medical Code(s): R78.81 - Bacteremia (2) Fecal impaction Current visit: Yes Status: Acute Category: Medical Code(s): K56.41 - Fecal impaction (3) Hypothyroidism Current visit: Yes Status: Acute Qualifiers: Hypothyroidism type: acquired Qualified Code(s): E03.9 - Hypothyroidism, unspecified Category: Medical Code(s): E03.9 - Hypothyroidism, unspecified (4) UTI (urinary tract infection) Current visit: Yes Status: Acute Qualifiers: Urinary tract infection type: site unspecified Hematuria presence: without hematuria Qualified Code(s): N39.0 - Urinary tract infection, site not speci fied Category: Medical Code(s): N39.0 - Urinary tract infection, site not specified (5) Obesity (BMI 30-39.9) Current visit: Yes Status: Chronic Category: Medical Code(s): E66.9 - Obesity, unspecified (6) Ataxia Current visit: No Status: Acute Category: Medical Code(s): R27.0 - Ataxia, unspecified (7) Swallowing dysfunction Current visit: Yes Status: Acute Category: Medical Code(s): R13.10 - Dysphagia, unspecified (8) Hypokalemia Current visit: Yes Status: Acute Category: Medical Code(s): E87.6 - Hypokalemia (9) Hypocalcemia Current visit: Yes Status: Acute Category: Medical Code(s): E83.51 - Hypocalcemia - Assessment and plan all Dx Assessment and Plan for all problems:: PICC line will be placed today. Patient is unsafe and high risk to return home given the squalid conditions in which she and her were found. APS referral was initiated by EMS. I completely agree with her needing outside guardianship/supervision of her choices. She will need to go to long-term care facility to at least complete IV antibiotics and go through physical therapy. I would also recommend this should be a long-term placement for her.
--- NOTE | 2018-12-16 12:02 | Pharmacy Consult Notes ---
- Pharmacy Consult Date: 12/16/18 Time: 12:01 Referring provider: DR. VILLEGAS Reason for Consult:: VANCOMYCIN TROUGH LEVEL Allergies and ADEs:: Allergies Allergy/AdvReac Type Severity Reaction Status Date / Time clarithromycin Allergy Mild Verified 12/10/18 21:12 [CLARITHROMYCIN] gabapentin [From NEURONTIN] Allergy Mild Verified 12/10/18 21:12 Home Medications:: Home Medications Medication Instructions Recorded Confirmed Type Pantoprazole Sodium [Protonix 40mg 40 mg PO HS 07/07/18 12/11/18 History tablet] Potassium Chloride [Klor-con 20 20 mg PO DAILY 07/07/18 12/11/18 History mEq tablet] Albuterol Sulfate [Albuterol 3 ml IH BIDP PRN 07/08/18 12/10/18 History 0.083% 2.5mg/3mL neb] Albuterol Sulfate [Proair Hfa 2 puffs IH QID 07/08/18 12/10/18 History 90mcg/puff Inh] Aspirin [Aspir 81] 81 mg PO DAILY 07/08/18 12/11/18 History Atorvastatin Calcium [Atorvastatin 20 mg PO HS 07/08/18 12/11/18 History 20mg Tab] Duloxetine HCl [Cymbalta] 30 mg PO BID 07/08/18 12/11/18 History Fluticasone Propionate [Flonase 2 spr NS DAILY 07/08/18 12/10/18 History 50mcg nasal spray 16gm] Fluticasone/Vilanterol [Breo 1 inh IH DAILY 07/08/18 12/10/18 History Ellipta 200-25 Mcg INH] Loratadine [Claritin] 10 mg PO DAILY 07/08/18 12/11/18 History Primidone 100 mg PO DAILY 07/08/18 12/11/18 History Umeclidinium [place] [Incruse 1 puff IH DAILY 07/08/18 12/10/18 History Ellipta] levoFLOXacin [Levaquin 500mg 500 mg PO DAILY 12/10/18 12/11/18 History tab] Levothyroxine Sodium 150 mcg PO DAILY 12/11/18 12/11/18 History [Levothyroxine 150mcg (0.15mg) Tab] Losartan Potassium 100 mg PO DAILY 12/11/18 12/11/18 History Height: 1.68 m Weight: 92.079 kg Laboratory Results:: Laboratory Results - last 24 hr 12/15/18 20:30: Vancomycin Trough 19.4 Medical History: Reports:: Arrhythmia, Hyperlipidemia, Hypertension Denies:: Cancer, Diabetes Mellitus Type 1, Diabetes Mellitus Type 2, MRSA Assessment and Plan (1) Bacteremia Current visit: Yes Status: Acute Category: Medical Code(s): R78.81 - Bacteremia (2) Fecal impaction Current visit: Yes Status: Acute Category: Medical Code(s): K56.41 - Fecal impaction (3) Hypothyroidism Current visit: Yes Status: Acute Qualifiers: Hypothyroidism type: acquired Qualified Code(s): E03.9 - Hypothyroidism, unspecified Category: Medical Code(s): E03.9 - Hypothyroidism, unspecified (4) UTI (urinary tract infection) Current visit: Yes Status: Acute Qualifiers: Urinary tract infection type: site unspecified Hematuria presence: without hematuria Qualified Code(s): N39.0 - Urinary tract infection, site not specified Category: Medical Code(s): N39.0 - Urinary tract infection, site not specified (5) Obesity (BMI 30-39.9) Current visit: Yes Status: Chronic Category: Medical Code(s): E66.9 - Obesity, unspecified (6) Ataxia Current visit: No Status: Acute Category: Medical Code(s): R27.0 - Ataxia, unspecified (7) Swallowing dysfunction Current visit: Yes Status: Acute Category: Medical Code(s): R13.10 - Dysphagia, unspecified (8) Hypokalemia Current visit: Yes Status: Acute Category: Medical Code(s): E87.6 - Hypokalemia (9) Hypocalcemia Current visit: Yes Status: Acute Category: Medical Code(s): E83.51 - Hypocalcemia - Assessment and plan all Dx Assessment and Plan for all problems:: BASED ON PATIENT FACTORS AND VANCOMYCIN TROUGH LEVEL, RECOMMEND CHANGING DOSE AND INTERVAL TO VANCOMYCIN 1500 MG IV Q36H. PHARMACY WILL FOLLOW DAILY AND ADJUST APPROPRIATE.
--- NOTE | 2018-12-16 15:38 | Discharge Summary ---
General - General Admission date:: 12/11/18 Discharge date: 12/16/18 HPI HPI: 78-year-old white female, intermittent patient to my practice, who rarely comes to the office because of transportation issues and also general disagreement with management plan-wishes to have opiates at every visit-who has been living at home with her disabled with very intermittent and sparse care from children who over the past week has had increasing problems with worsening illness, UTI symptoms and fevers. Was seen in the emergency department last week, diagnosed with a UTI and placed on antibiotics and discharged, however urine and blood cultures have returned with Staphylococcus epidermidis-identical resistance patterns in both culture sets, and patient return to the ER by EMS yesterday evening after EMS was called because of the patient's inability to get up and take care of herself. They found the patient and her in squalid conditions, sitting in puddles of their own stool and urine with significant issues with poor hygiene and ongoi ng lack of cleanliness in the home. The patient was brought to the ER where cultures were reviewed from her previous ER note and she was admitted to hospital with vancomycin therapy for her bacteremia and UTI that failed outpatient therapy. Hospital Course Hospital Course: Patient was admitted, placed on intravenous vancomycin as well as clindamycin because of unknown sensitivity patterns of the gram-positive cocci. This turned out to be staph epidermidis, from blood and urine, sensitive to vancomycin. Therapy was downgraded/narrowed to vancomycin therapy yesterday evening. The patient improved from a diarrhea perspective and had no further fevers. Repeat blood cultures 2 days after admission were negative for growth. Patient was talked to several times about need for long-term care placement and adamantly refused. APS was contacted and reinvestigated the home and felt that it was improved over the admission/EMS report and they had no problems with patient being discharged back there. We did arrange for a couple of doses of vancomycin therapy to finish up a 10-day course through home health/infusion services. Although I would prefer patient be admitted to long-term care she does not consent to this and as a result she will be transferred home today with home health for PT/OT and medication administration as prescribed. Follow-up will be per home health nursing. Patient is unable to leave her home without a great deal of difficulty because of her functional quadriplegia. Objective Vital signs: Temp Pulse Resp BP Pulse Ox 98.8 F 86 20 161/81 H 96 12/16/18 08:00 12/16/18 08:00 12/16/18 08:00 12/16/18 08:00 12/16/18 08:00 Narrative: Patient is alert. Oriented x2. Little fuzzy about the date. Remains afflicted with significant psychologic pathology with poor eye contact. Tangential thinking and flight of ideas-most of this seems to be volitional as patient has significant desires to return to home no matter what medical advice or her current situation shows. Heart rate regular. Abdomen is soft, obesity noted. Lungs are clear in the anterior tong. Extremities are weak, she is unable to ambulate or sit on her own. This is an old finding. No perfusion deficits. Results Labs on day of discharge: Labs from last 24 hours 12/15/18 20:30 Vancomycin Trough 19.4 Preliminary micro results at discharge 12/10/18 21:20 Blood Culture - Preliminary Blood Staphylococcus epidermidis 12/12/18 08:20 Blood Culture - Preliminary Blood NO GROWTH AFTER 48 HOURS 12/12/18 08:13 Blood Culture - Preliminary Blood NO GROWTH AFTER 48 HOURS DS: Diagnosis - Discharge Diagnosis (1) Bacteremia Status: Resolved (2) Fecal impaction Status: Resolved (3) Hypothyroidism Status: Chronic (4) UTI (urinary tract infection) Status: Acute (5) Obesity (BMI 30-39.9) Status: Chronic (6) Ataxia Status: Chronic (7) Swallowing dysfunction Status: Chronic (8) Hypokalemia Status: Resolved (9) Hypocalcemia Status: Resolved Discharge Plan - Patient Discharge Instructions ACTIVITY: Continue current activity, Up with assistance DIET: continue same diet Patient Instructions: Urinary Tract Infection, Anemia, High Blood Pressure, DI for High Blood Pressure, DI for Urinary Tract Infection (UTI), DI for Hypernatremia, Hypernatremia-Adult, DI for Multiple Drug-resistant Organism (MDRO) Infection - Follow up Plan Disposition: Home Health Service Home Medications: Home Medications Medication Instructions Recorded Confirmed Type Pantoprazole Sodium [Protonix 40mg 40 mg PO HS 07/07/18 12/11/18 History tablet] Potassium Chloride [Klor-con 20 20 mg PO DAILY 07/07/18 12/11/18 History mEq tablet] Albuterol Sulfate [Albuterol 3 ml IH BIDP PRN 07/08/18 12/10/18 History 0.083% 2.5mg/3mL neb] Albuterol Sulfate [Proair Hfa 2 puffs IH QID 07/08/18 12/10/18 History 90mcg/puff Inh] Aspirin [Aspir 81] 81 mg PO DAILY 07/08/18 12/11/18 History Atorvastatin Calcium [Atorvastatin 20 mg PO HS 07/08/18 12/11/18 History 20mg Tab] Duloxetine HCl [Cymbalta] 30 mg PO BID 07/08/18 12/11/18 History Fluticasone Propionate [Flonase 2 spr NS DAILY 07/08/18 12/10/18 History 50mcg nasal spray 16gm] Fluticasone/Vilanterol [Breo 1 inh IH DAILY 07/08/18 12/10/18 History Ellipta 200-25 Mcg INH] Loratadine [Claritin] 10 mg PO DAILY 07/08/18 12/11/18 History Primidone 100 mg PO DAILY 07/08/18 12/11/18 History Umeclidinium [place] [Incruse 1 puff IH DAILY 07/08/18 12/10/18 History Ellipta] levoFLOXacin [Levaquin 500mg 500 mg PO DAILY 12/10/18 12/11/18 History tab] Levothyroxine Sodium 150 mcg PO DAILY 12/11/18 12/11/18 History [Levothyroxine 150mcg (0.15mg) Tab] Losartan Potassium 100 mg PO DAILY 12/11/18 12/11/18 History Prescriptions/Medication Reconciliation: New Vancomycin HCl [Vancomycin 1000mg Vial] 1,500 mg IV Q36H vial Continued Pantoprazole Sodium [Protonix 40mg tablet] 40 mg PO HS Potassium Chloride [Klor-con 20 mEq tablet] 20 mg PO DAILY Albuterol Sulfate [Albuterol 0.083% 2.5mg/3mL neb] 3 ml IH BIDP PRN PRN Reason: SHORTNESS OF AIR Albuterol Sulfate [Proair Hfa 90mcg/puff Inh] 2 puffs IH QID Aspirin [Aspir 81] 81 mg PO DAILY Atorvastatin Calcium [Atorvastatin 20mg Tab] 20 mg PO HS Duloxetine HCl [Cymbalta] 30 mg PO BID Fluticasone Propionate [Flonase 50mcg nasal spray 16gm] 2 spr NS DAILY Fluticasone/Vilanterol [Breo Ellipta 200-25 Mcg INH] 1 inh IH DAILY Loratadine [Claritin] 10 mg PO DAILY Primidone 100 mg PO DAILY Umeclidinium [place] [Incruse Ellipta] 1 puff IH DAILY levoFLOXacin [Levaquin 500mg tab] 500 mg PO DAILY Losartan Potassium 100 mg PO DAILY Levothyroxine Sodium [Levothyroxine 150mcg (0.15mg) Tab] 150 mcg PO DAILY - Problem Reconciliation Problems Reviewed?: Yes
== END 2018-12-16 21:05 | disposition home health service (06) | DRG 689 ==
LOC: 2ND 21:05 → ER 21:05 → 2ND 12-11 00:37
PROVIDERS: ADMIT Internal Medicine Adolescent Medicine; ATTEND Internal Medicine Adolescent Medicine
CPT/HCPCS: 36415; 36569; 70450; 71010; 71045; 74177; 76000; 77001; 80048; 80053; 80202; 81001; 82150; 83605; 83690; 83735; 84100; 84484; 85025; 85651; 86140; 87040; 87077; 87186; 92610; 93005; 96365; 96367; 97110; 97163; 97165; 97530; 97535; 99285; C1751; C1769; J2405; J3370; Q9967

== ENCOUNTER 2018-12-22 10:05 | Observation (INO) ==
--- NOTE | 2018-12-22 10:08 | Emergency Department Note ---
ED Disposition Clinical Impression: Elevated troponin Hypertension Qualifiers: Hypertension type: essential hypertension Qualified Code(s): I10 - Essential (primary) hypertension Disposition: Admitted as Observation Condition on Discharge: Good - Critical Care Critical Care Time: No Attestation: On , the high probability of a clinically significant, sudden or life threatening deterioration of the following system(s) required my full and direct attention, intervention and personal management. The time I documented below is in addition to time spent performing reported procedures but includes the following listed in this critical care notation. Medical Decision Making - Medical Records Medical records reviewed: Yes: I reviewed the patient's medical records. - Hermelindo Inquiry Pt receiving controlled substance: No Vital Signs: 12/22/18 10:00 12/22/18 10:33 Temperature 98.3 F Temperature Source Oral Pulse Rate [Right Radial] 89 89 Respiratory Rate 16 Blood Pressure [Right Arm] 212/102 H 195/96 H Blood Pressure Mean [Right Arm] 138 129 Blood Pressure Source [Right Arm] Automatic Cuff Blood Pressure Position [Right Arm] Supine 02 Sat by Pulse Oximetry 98 96 Oxygen Delivery Method Room Air - Lab Data Lab results reviewed: Yes: I reviewed the patient's lab results. Lab Results 12/22/18 09:45: WBC 10.2, RBC 3.48 L, Hgb 10.7 L, Hct 36.4 L, MCV 104.8 H, MCH 30.6, MCHC 29.2 L, RDW 16.5, Plt Count 247, MPV 8.1, Neut % (Auto) 72.1, Lymph % (Auto) 18.1, Craven % (Auto) 7.2, Eos % (Auto) 1.7, Baso % (Auto) 0.8, Neut # (Auto) 7.4, Lymph # (Auto) 1.9, Craven # (Auto) 0.7, Eos # (Auto) 0.2, Baso # (Auto) 0.1 12/22/18 09:45: Sodium 140, Potassium 4.1, Chloride 103, Carbon Dioxide 30, Anion Gap 11.1, BUN 10, Creatinine 1.06 H, Estimated Creat Clear 70, Estimated GFR 50 L, Est GFR ( Amer) 60, Glucose 105, Calcium 8.3 L, Total Bilirubin 0.4, AST 23, ALT 14, Alkaline Phosphatase 89, Troponin I 0.08 H, Total Protein 7.2, Albumin 2.9 L, Globulin 4.3 H, Albumin/Globulin Ratio 0.7 L Result diagrams: 12/22/18 09:45 12/22/18 09:45 Orders (Tests/Meds): ED MEDICATIONS Discontinued Medications Generic Name Dose Route Start Last Admin Trade Name Nikoq PRN Reason Stop Dose Admin Aspirin 324 mg 12/22/18 10:45 Aspirin 81mg Chewable Tablet PO 12/22/18 10:46 ONCE ONE Clonidine HCl 0.1 mg 12/22/18 10:05 12/22/18 10:29 Clonidine 0.1mg Tablet PO 12/22/18 10:06 0.1 mg ONCE ONE Administration Metoprolol Tartrate 12.5 mg 12/22/18 10:45 Lopressor 25mg Tablet PO 12/22/18 10:46 ONCE ONE ORDERS Category Date Time Status XR chest portable Stat Exams 12/22/18 10:05 Ordered Urinalysis and Microscopic Stat Lab 12/22/18 10:05 Ordered ECG Request by Dr/Nse Stat Y 12/22/18 10:05 Ordered - ECG Data Tracing #1 I reviewed this ECG and interpreted as documented below: Normal Sinus Rhythm: Yes (rbbb, no stemi) Medical Decision Narrative: consult d/w Dr Miller, admit to [facility] d/w Dr Woody General Adult HPI - General Chief complaint: Weakness Stated complaint: BODYACHES Time Seen by Provider: 12/22/18 10:06 Mode of Arrival: EMS Source of Information: Patient, EMS - History of Present Illness HPI narrative: diffuse weakness, noncompliant with meds, presents w/ elevated blood pressure, no fever, no NV, no injury, poor historian - Related Data Home Medications Medication Instructions Recorded Confirmed Pantoprazole Sodium [Protonix 40mg 40 mg PO HS 07/07/18 12/11/18 tablet] Potassium Chloride [Klor-con 20 20 mg PO DAILY 07/07/18 12/11/18 mEq tablet] Albuterol Sulfate [Albuterol 3 ml IH BIDP PRN 07/08/18 12/10/18 0.083% 2.5mg/3mL neb] Albuterol Sulfate [Proair Hfa 2 puffs IH QID 07/08/18 12/10/18 90mcg/puff Inh] Aspirin [Aspir 81] 81 mg PO DAILY 07/08/18 12/11/18 Atorvastatin Calcium [Atorvastatin 20 mg PO HS 07/08/18 12/11/18 20mg Tab] Duloxetine HCl [Cymbalta] 30 mg PO BID 07/08/18 12/11/18 Fluticasone Propionate [Flonase 2 spr NS DAILY 07/08/18 12/10/18 50mcg nasal spray 16gm] Fluticasone/Vilanterol [Breo 1 inh IH DAILY 07/08/18 12/10/18 Ellipta 200-25 Mcg INH] Loratadine [Claritin] 10 mg PO DAILY 07/08/18 12/11/18 Primidone 100 mg PO DAILY 07/08/18 12/11/18 Umeclidinium Parrott [Incruse 1 puff IH DAILY 07/08/18 12/10/18 Ellipta] levoFLOXacin [Levaquin 500mg 500 mg PO DAILY 12/10/18 12/11/18 tab] Levothyroxine Sodium 150 mcg PO DAILY 12/11/18 12/11/18 [Levothyroxine 150mcg (0.15mg) Tab] Losartan Potassium 100 mg PO DAILY 12/11/18 12/11/18 Previous Rx's Medication Instructions Recorded Vancomycin HCl [Vancomycin 1000mg 1,500 mg IV Q36H vial 12/16/18 Vial] Allergies Allergy/AdvReac Type Severity Reaction Status Date / Time clarithromycin Allergy Mild Verified 12/20/18 00:37 [CLARITHROMYCIN] gabapentin [From NEURONTIN] Allergy Mild Verified 12/20/18 00:37 [facility] History - Hepatitis A Screen Attestation statement:: This patient has been screened for Hepatitis A risk factors. Medical History: Reports:: Arrhythmia, Hyperlipidemia, Hypertension Denies:: Cancer, Diabetes Mellitus Type 1, Diabetes Mellitus Type 2, MRSA Other Medical History: Reports: Arthritis, Thyroid Disease Laterality Cases: Left: Total Hip Replacement Other Surgeries: Yes: Thyroidectomy Amputation: No - Social History Smoking Status: Former smoker # Packs/Day (cigarettes): 1 Alcohol Intake: never Occupational Status: retired Housing: house Household Members: spouse, other Comment: Patient social history noted as above. Son lives nearby but apparently has not been heavily involved. Patient has a history of missed appointments and medical noncompliance in my office. Family Hx:: No significant family history ROS Obtained: Yes Systems reviewed as appropriate & no additional complaints - Constitutional Constitutional: Reports fatigue, Denies fever(s) - Eyes Eyes: Denies change in vision - ENT Ears, Nose, Mouth, and Throat: Denies neck pain - Cardiovascular Cardiovascular: Denies chest pain - Respiratory Respiratory: No dyspnea - Gastrointestinal Gastrointestingal: Denies: abdominal pain, vomiting - Musculoskeletal Musculoskeletal: Denies back pain, Denies neck pain - Integumentary/Breasts Skin/Breast: Denies rash - Neurologic Neurologic: Denies convulsions, Denies focal weakness Physical Exam - General General appearance: alert, in no apparent distress - Head Head exam: normocephalic - Eye Eye exam: Present: normal appearance - ENT ENT exam: Present: mucous membranes moist - Neck Neck exam: Present: normal inspection - Chest Chest inspection: Present: normal inspection - Respiratory Respiratory exam: Present: normal lung sounds bilaterally - Cardiovascular Cardiovascular exam: Present: regular rate, normal rhythm - Abdominal Exam Abdominal exam: Present: soft. Absent: tenderness - Extremities Exam Extremities exam: Absent: tenderness - Back Exam Back exam: Absent: vertebral tenderness - Neurological Exam Neurological exam: Present: alert - Psychiatric Psychiatric exam: Present: normal affect, normal mood - Skin Skin exam: Present: warm, dry
[2018-12-22 10:14] LABS: Basophils # 0.1 K/mm3 (0-0.2); Basophils % 0.8 % (0.1-2.0); Eosinophils # 0.2 K/mm3 (0.0-0.4); Eosinophils % 1.7 % (0.1-12.0); Hematocrit 36.4 % (37.0-47.0); Hemoglobin 10.7 g/dL (12.2-16.2); Lymphocytes # 1.9 K/mm3 (0.7-4.5); Lymphocytes % 18.1 % (10-50); Mean Corpuscular HGB Conc 29.2 g/dL (31.8-35.4); Mean Corpuscular Volume 104.8 fl (81-99); Mean Platelet Volume 8.1 fl (7.4-10.4); Monocytes # 0.7 K/mm3 (0.1-1.0); Monocytes % 7.2 % (1.7-9.3); Neutrophils # 7.4 K/mm3 (1.8-7.8); Neutrophils % 72.1 % (37.0-80.0); Platelet Count 247 K/mm3 (142-424); Red Blood Count 3.48 M/mm3 (4.20-5.40); Red Cell Distribution Width 16.5 % (11.5-17.5); White Blood Count 10.2 K/mm3 (4.8-10.8)
[2018-12-22 10:26] LABS: Albumin Level 2.9 gm/dL (3.4-5.0); Albumin/Globulin Ratio 0.7 (1.1-1.8); Anion Gap 11.1 mEq/L (5-15); Bilirubin,Total 0.4 mg/dL (0.2-1.0); Calcium 8.3 mg/dL (8.5-10.1); Globulin 4.3 gm/dl (1.3-3.2); Total Protein,Serum 7.2 gm/dL (6.4-8.2)
[2018-12-22 11:43] LABS: Coronavirus 229E Not Detected (NotDetected); Coronavirus NL63 Not Detected (NotDetected); Coronavirus OC43 Not Detected (NotDetected); Coronovirus HKU1,PCR Not Detected (NotDetected)
--- NOTE | 2018-12-22 12:47 | Pharmacy Consult Notes ---
[facility] Pharmacy VTE Monitoring - Patient Demographics Admission date: 12/22/18 Report Date: 12/22/18 Time: 12:47 Allergies/Adverse Reactions: Patient Allergies clarithromycin [CLARITHROMYCIN] Allergy (Mild, Verified 12/20/18 00:37) gabapentin [From NEURONTIN] Allergy (Mild, Verified 12/20/18 00:37) Height: 1.6 m Weight: 104.326 kg Patient Problems: Current Active Problems Hypertension (Acute) Elevated troponin (Acute) - VTE Risk Labs: VTE Related Lab Results Hgb 10.7 g/dL (12.2-16.2) L 12/22/18 09:45 Hct 36.4 % (37.0-47.0) L 12/22/18 09:45 Plt Count 247 K/mm3 (142-424) 12/22/18 09:45 BUN 10 mg/dL (7-18) 12/22/18 09:45 Creatinine 1.06 mg/dL (0.55-1.02) H 12/22/18 09:45 Estimated Creat Clear 70 mL/min (50-200) 12/22/18 09:45 - Prophylaxis VTE Prophylaxis Ordered?: Yes Types of VTE Prophylaxis: TEDS Knee High Location of Applied Device: Bilateral Lower Extremeties
--- NOTE | 2018-12-23 00:56 | History & Physical Report ---
*Admission Date: 12/22/18 *Chief complaint: fatigue, weakness, MALLOY *History of present illness: Ms. Doe is an 78-year-old female who was brought into the ER the second time in 3 days due to weakness and some mild confusion. Originally brought in on the and found to have hypertension but on treatment at that time and just not taking her meds. Instructed to take her medication as she had no other deficits and was at her baseline, and follow-up with her PCP. We did not hear from her in the office and she came back into the ER yesterday due to worsening confusion found again to have hypertension and smoldered male status. This morning on interview she is unclear as to where she is or why. Complains of weakness and tremor. Assessment in ER noted HTN and elevated troponin suspicious for NSTEMI. Admitted for further management. [facility] History I have reviewed the patient's past medical history: Yes Medical History: Reports:: Arrhythmia, Hyperlipidemia, Hypertension Denies:: Cancer, Diabetes Mellitus Type 1, Diabetes Mellitus Type 2, MRSA *Have you ever received a pneumonia vaccine?: No *Have you received a flu vaccine this season?: No Other Medical History: Reports: Arthritis, Thyroid Disease Laterality Cases: Left: Total Hip Replacement Other Surgeries: Yes: Thyroidectomy Amputation: No - *Social History Educational Level: Attended High School Smoking Status: Former smoker # Packs/Day (cigarettes): 1 Alcohol Intake: never *Occupational Status:: retired Housing: house Household Members: spouse, other *Travel in the last 8 weeks: None Family Hx:: No significant family history Review of Systems - Review of Systems Review of systems:: pertinent systems reviewed and negative unless documented below (though difficult to obtain due to poor historian ) - *Neurologic Denies seizure-like activity, Denies localized weakness Meds Home Medications Medication Instructions Recorded Confirmed Type Pantoprazole Sodium [Protonix 40mg 40 mg PO HS 07/07/18 12/22/18 History tablet] Albuterol Sulfate [Albuterol 3 ml IH BIDP PRN 07/08/18 12/22/18 History 0.083% 2.5mg/3mL neb] Albuterol Sulfate [Proair Hfa 2 puffs IH QID 07/08/18 12/22/18 History 90mcg/puff Inh] Aspirin [Aspir 81] 81 mg PO DAILY 07/08/18 12/22/18 History Atorvastatin Calcium [Atorvastatin 20 mg PO HS 07/08/18 12/22/18 History 20mg Tab] Loratadine [Claritin] 10 mg PO DAILY 07/08/18 12/22/18 History Allergies Allergy/AdvReac Type Severity Reaction Status Date / Time clarithromycin Allergy Mild Verified 12/20/18 00:37 [CLARITHROMYCIN] gabapentin [From NEURONTIN] Allergy Mild Verified 12/20/18 00:37 Exam Vital signs and Labs for Last 24 Hours: Temp Pulse Resp BP Pulse Ox 99.1 F 88 18 184/90 H 96 12/22/18 20:00 12/22/18 20:00 12/22/18 20:00 12/22/18 20:00 12/22/18 20:00 Laboratory Results - last 24 hr 12/22/18 09:45: WBC 10.2, RBC 3.48 L, Hgb 10.7 L, Hct 36.4 L, MCV 104.8 H, MCH 30.6, MCHC 29.2 L, RDW 16.5, Plt Count 247, MPV 8.1, Neut % (Auto) 72.1, Lymph % (Auto) 18.1, Mills % (Auto) 7.2, Eos % (Auto) 1.7, Baso % (Auto) 0.8, Neut # (Auto) 7.4, Lymph # (Auto) 1.9, Mills # (Auto) 0.7, Eos # (Auto) 0.2, Baso # (Auto) 0.1 12/22/18 09:45: Sodium 140, Potassium 4.1, Chloride 103, Carbon Dioxide 30, Anion Gap 11.1, BUN 10, Creatinine 1.06 H, Estimated Creat Clear 70, Estimated GFR 50 L, Est GFR ( Amer) 60, Glucose 105, Calcium 8.3 L, Total Bilirubin 0.4, AST 23, ALT 14, Alkaline Phosphatase 89, Troponin I 0.08 H, Total Protein 7.2, Albumin 2.9 L, Globulin 4.3 H, Albumin/Globulin Ratio 0.7 L 12/22/18 09:45: Chlamy pneumoniae PCR Not detected, Adenovirus (PCR) Not detected, B. pertussis DNA (PCR) Not detected, Coronavirus OC43 (PCR) Not detected, Coronavirus HKU1 (PCR) Not detected, Coronavirus 229E (PCR) Not detected, Coronavirus NL63 (PCR) Not detected, Human Metapneumovir PCR Not detected, Influenza A (H1) PCR Not detected, Influ A (H1N1/09) PCR Not detected, Influenza A (H3) PCR Not detected, Influenza Type A (PCR) Not detected, Influenza Type B (PCR) Not detected, M. pneumoniae (PCR) Not detected, Parainfluenza 1 (PCR) Not detected, Parainfluenza 2 (PCR) Not detected, Parainfluenza 3 (PCR) Not detected, Parainfluenza 4 (PCR) Not detected, RSV (PCR) Not detected, Entero/Rhino (PCR) Not detected 12/22/18 14:13: Troponin I 0.13 H 12/22/18 20:30: Troponin I 0.10 H I & O for Last 24 hours: Intake & Output 12/20/18 12/21/18 12/22/18 12/23/18 23:59 23:59 23:59 23:59 Intake Total 0 / 0 Balance 0 / 0 Weight 86.778 kg - Constitutional mild distress, obese, chronically ill appearing, disheveled - *Routine HEENT Exam Head: Present: normocephalic Eye: Present: EOMI, PERRL ENT: Present: mucous membranes moist - *Routine Neck Exam Present: supple. Absent: lymphadenopathy - *Routine Respiratory Exam Present: CTA bilaterally - *Routine Cardiovascular Exam Present: RRR - *Routine Abdominal Exam Present: soft, normoactive bowel sounds. Absent: tenderness - *Routine Extremities Exam Absent: cyanosis, clubbing, edema Comments: tremor in hands - *Routine Skin Exam Present: pallor, warm. Absent: rash - *Routine Neurological Exam Present: alert oriented to person, confused but pleasant Assessment and Plan (1) Elevated troponin Current visit: Yes Status: Acute Category: Medical Code(s): R79.89 - Other specified abnormal findings of blood chemistry (2) Hypertension Current visit: Yes Status: Acute Qualifiers: Hypertension type: essential hypertension Qualified Code(s): I10 - Essential (primary) hypertension Category: Medical Code(s): I10 - Essential (primary) hypertension (3) Essential tremor Current visit: No Status: Acute Category: Medical Code(s): G25.0 - Essential tremor (4) Hypertensive urgency Current visit: No Status: Acute Category: Medical Code(s): I16.0 - Hypertensive urgency (5) Anemia Current visit: No Status: Chronic Qualifiers: Anemia type: unspecified type Qualified Code(s): D64.9 - Anemia, unspecified Category: Medical Code(s): D64.9 - Anemia, unspecified (6) Functional quadriplegia Current visit: No Status: Chronic Category: Medical Code(s): R53.2 - Functional quadriplegia - Assessment and plan all Dx Assessment and Plan for all problems:: 78-year-old female with hypertensive urgency on admission and confusion. Will address blood pressure by initiating oral therapy. Improving over the course of today however still hypertensive but not urgent anymore. Also noted to have troponin elevation suspicious for NSTEMI type II given troponin leak during hypertensive urgency. At this time we will continue to monitor for improvement in blood pressure and mentation. Will attempt to contact family to better understand patient's history and presentation rationale as there is no family at bedside at this time. Patient was recently admitted and family has consistently been adamant about caring for her at home. She also has extensive history of noncompliance to medical management. We will plan to get her as close to baseline as possible with improvement in her blood pressure and stable medication regimen, at which time plan for discharge back home in the care of her family even though it has been strongly encouraged that she pursue placement in the future. Patient family of consistently declined this. Patient is a full code. Clinically her condition is guarded and prognosis is poor.
[2018-12-23 06:32] LABS: Basophils # 0.1 K/mm3 (0-0.2); Basophils % 0.7 % (0.1-2.0); Eosinophils # 0.2 K/mm3 (0.0-0.4); Eosinophils % 2.2 % (0.1-12.0); Hematocrit 31.1 % (37.0-47.0); Lymphocytes # 1.7 K/mm3 (0.7-4.5); Lymphocytes % 20.1 % (10-50); Mean Corpuscular HGB Conc 28.9 g/dL (31.8-35.4); Mean Corpuscular Volume 105.4 fl (81-99); Mean Platelet Volume 8.1 fl (7.4-10.4); Monocytes # 0.6 K/mm3 (0.1-1.0); Monocytes % 7.7 % (1.7-9.3); Neutrophils # 5.7 K/mm3 (1.8-7.8); Neutrophils % 69.2 % (37.0-80.0); Platelet Count 195 K/mm3 (142-424); Red Blood Count 2.95 M/mm3 (4.20-5.40); Red Cell Distribution Width 16.6 % (11.5-17.5); White Blood Count 8.3 K/mm3 (4.8-10.8)
[2018-12-23 06:37] LABS: Anion Gap 10.8 mEq/L (5-15); Calcium 8.1 mg/dL (8.5-10.1)
[2018-12-23 06:44] LABS: Hemoglobin 9.1 g/dL (12.2-16.2)
--- NOTE | 2018-12-23 17:25 | Electrocardiograph Report ---
APPROVED REPORT Exam: Resting ECG HR:88 bpm ECG Measurements Heart Rate 88 AXES MN 166 P 38 QRSd 126 QRS 86 QT 386 T37 QTc 467 <Conclusion> Normal sinus rhythm Right bundle branch block,Motion Artifact Abnormal ECG Electronically signed by : Iraj Oconnell, 12/23/2018 17:24:39
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
--- NOTE | 2018-12-24 16:31 | Electrocardiograph Report ---
APPROVED REPORT Exam: Resting ECG HR:89 bpm ECG Measurements Heart Rate 89 AXES QRSd 112 QRS 79 QT 374 T43 QTc 455 <Conclusion> Sinus Rhythm Incomplete right bundle branch block Motion Artifact Abnormal ECG Electronically signed by : Iraj Oconnell, 12/24/2018 16:31:33
== END 2018-12-24 12:15 | disposition home or self-care (01) ==
LOC: ER 10:05 → 2ND 10:05
PROVIDERS: ADMIT Emergency Medicine; ATTEND Internal Medicine Adolescent Medicine
CPT/HCPCS: 36415; 71010; 71045; 80048; 80053; 83735; 84484; 85025; 87486; 87581; 87633; 87798; 93005; 94640; 99284; G0378

== ENCOUNTER 2019-10-07 01:05 | Emergency (ER) | payer MEDICARE, MEDICAID, SELFPAY ==
[2019-10-07] VITALS (14 sets, daily range): BP systolic 125–241; BP diastolic 45–115; PULSE 71–85; RESP 15–19; TEMP 36.5–36.6; O2SAT 94–98; BMI 27.4
[2019-10-07 02:27] LABS: Chloride 99 mmol/L (98-107); Sodium 136 mmol/L (136-145)
[2019-10-07 02:29] LABS: Amylase 65 U/L (30-110); Blood Urea Nitrogen 17 mg/dl (7-17); Creatinine Clearance Estimated 55 mL/min (50-200); Estimated Glomerular Filt Rate 69 ml/min (>60); GFR (African American) 84 ML/MIN (>60)
[2019-10-07 02:30] LABS: Alanine Aminotransferase 14 U/L (12-78); Albumin Level 3.3 g/dl (3.5-5.0); Albumin/Globulin Ratio 0.9 (1.1-1.8); Alkaline Phosphatase 117 U/L (38-126); Aspartate Amino Transferase 27 U/L (14-36); Bilirubin,Total 0.4 mg/dl (0.2-1.3); Calcium 8.6 mg/dl (8.4-10.2); Carbon Dioxide 27 mmol/L (22.0-30.0); Globulin 3.8 g/dL (1.3-3.2); Glucose 96 mg/dl (74-100); Lipase 92 U/L (23-300); Total Protein,Serum 7.1 g/dl (6.3-8.2)
[2019-10-07 02:33] LABS: Basophils # 0.1 K/mm3 (0-0.2); Basophils % 0.7 % (0.1-2.0); Eosinophils # 0.6 K/mm3 (0.0-0.4); Eosinophils % 5.6 % (0.1-12.0); Hematocrit 36.8 % (37.0-47.0); Hemoglobin 12.1 g/dL (12.2-16.2); Lymphocytes # 2.5 K/mm3 (0.7-4.5); Lymphocytes % 24.7 % (10-50); Mean Corpuscular HGB Conc 32.8 g/dL (31.8-35.4); Mean Corpuscular Hemoglobin 33.8 pg (27.0-31.2); Mean Corpuscular Volume 103.1 fl (81-99); Mean Platelet Volume 8.7 fl (7.4-10.4); Monocytes # 0.6 K/mm3 (0.1-1.0); Monocytes % 5.6 % (1.7-9.3); Neutrophils # 6.4 K/mm3 (1.8-7.8); Neutrophils % 63.4 % (37.0-80.0); Platelet Count 212 K/mm3 (142-424); Red Blood Count 3.57 M/mm3 (4.20-5.40); Red Cell Distribution Width 13.8 % (11.5-17.5); White Blood Count 10.1 K/mm3 (4.8-10.8)
--- NOTE | 2019-10-07 03:21 | HMH.EDNVD ---
ED Disposition Clinical Impression: Gastroenteritis Disposition: Home, Self-Care Condition on Discharge: Good Instructions: DI for Nausea -- Adult, DI for Nausea -- Child, DI for Diarrhea and Traveler's Diarrhea -- Adult, DI for Diarrhea and Traveler's Diarrhea -- Child Prescriptions: Ondansetron [Zofran 4mg ODT] 4 mg PO TID PRN 4 Days #15 tab.rapdis PRN Reason: Nausea Transmission Status: Pending to [facility] Referrals: Khai Frederick MD [Primary Care Provider] - - Critical Care Critical Care Time: No Attestation: On 10/07/19, the high probability of a clinically significant, sudden or life threatening deterioration of the following system(s) required my full and direct attention, intervention and personal management. The time I documented below is in addition to time spent performing reported procedures but includes the following listed in this critical care notation. Medical Decision Making - Medical Records Medical records reviewed: Yes: I reviewed the patient's medical records. - [place] Inquiry Pt receiving controlled substance: No Vital Signs: 10/07/19 00:47 Temperature 97.7 F Temperature Source Oral Pulse Rate [Right Brachial] 80 Respiratory Rate 19 Blood Pressure [Right Arm] 241/115 H Blood Pressure Mean [Right Arm] 157 Blood Pressure Source [Right Arm] Automatic Cuff Blood Pressure Position [Right Arm] Supine 02 Sat by Pulse Oximetry 98 Oxygen Delivery Method Room Air - Lab Data Lab results reviewed: Yes: I reviewed the patient's lab results. Lab Results 10/07/19 01:06: WBC 10.1, RBC 3.57 L, Hgb 12.1 L, Hct 36.8 L, MCV 103.1 H, MCH 33.8 H, MCHC 32.8, RDW 13.8, Plt Count 212, MPV 8.7, Neut % (Auto) 63.4, Lymph % (Auto) 24.7, [place] % (Auto) 5.6, Eos % (Auto) 5.6, Baso % (Auto) 0.7, Neut # (Auto) 6.4, Lymph # (Auto) 2.5, [place] # (Auto) 0.6, Eos # (Auto) 0.6 H, Baso # (Auto) 0.1 10/07/19 01:06: Sodium 136, Potassium 4.0, Chloride 99, Carbon Dioxide 27, Anion Gap 14.0, BUN 17, Creatinine 0.80, Estimated Creat Clear 55, Estimated GFR 69, Est GFR ( Amer) 84, Glucose 96, Calcium 8.6, Total Bilirubin 0.4, AST 27, ALT 14, Alkaline Phosphatase 117, Total Protein 7.1, Albumin 3.3 L, Globulin 3.8 H, Albumin/Globulin Ratio 0.9 L, Amylase 65, Lipase 92 Result diagrams: 10/07/19 01:06 10/07/19 01:06 Orders (Tests/Meds): ED MEDICATIONS Generic Name Dose Route Start Last Admin Trade Name Freq PRN Reason Stop Dose Admin Sodium Chloride 1,000 mls @ 999 mls/hr 10/07/19 02:15 10/07/19 02:14 Sod Chlor 0.9% 1000ml Bag IV 10/07/19 03:15 999 mls/hr .[id number] YVON Administration Discontinued Medications Generic Name Dose Route Start Last Admin Trade Name Freq PRN Reason Stop Dose Admin Clonidine HCl 0.1 mg 10/07/19 02:49 10/07/19 02:50 Clonidine 0.1mg Tablet PO 10/07/19 02:50 0.1 mg ONCE ONE Administration Ondansetron HCl 4 mg 10/07/19 02:13 10/07/19 02:14 Zofran 4mg/2ml Vial IV 10/07/19 02:14 4 mg ONCE ONE Administration ORDERS Category Date Time Status Urinalysis (cathed specimen) Stat Lab 10/07/19 00:54 Ordered Medical Decision Narrative: After fluids and antiemetics patient states she feels better and would like to go home. Nausea/Vomiting/Diarrhea HPI - General Chief complaint: Nausea/Vomiting/Diarrhea Stated complaint: n/v/d Time Seen by Provider: 10/07/19 03:21 Mode of Arrival: EMS Limitations: No Limitations Description of Symptoms (Recalled from ER Triage Doc. by RN): n/v, didn't feel well today; afebrile. no additional complaints - History of Present Illness HPI Narrative: 78-year-old female presents the emergency department with acute onset of nausea with one episode of emesis. She also states she does not feel well. Patient denies any cough or shortness of breath. Patient denies any fever shakes or chills patient denies any loss of smell or taste patient denies any arthralgias or myalgias. Patient also de
--- NOTE | 2019-10-07 05:01 | INFXCTL.NOTE ---
due to high acuity pts in the ER pt discharge delayed at this time
--- NOTE | 2019-10-07 07:15 | PC.NURSE ---
called pt's regarding d/c home. he states pt is usually d/shayne home per ambulance
== END 2019-10-07 09:59 | disposition home or self-care (01) ==
PROVIDERS: Emergency Provider Family Medicine; PCP Internal Medicine Adolescent Medicine
DX: K52.9 Noninfective gastroenteritis and colitis, unspecified (principal); E78.5 Hyperlipidemia, unspecified; I10 Essential (primary) hypertension; Z96.642 Presence of left artificial hip joint; Z87.891 Personal history of nicotine dependence; E03.9 Hypothyroidism, unspecified; Z88.1 Allergy status to other antibiotic agents
CPT/HCPCS: 80053; 82150; 83690; 85025; 96365; 96375; 96376; 99283; J2405